=== PATIENT | male | born 1975 | race Caucasian/White ===

== ENCOUNTER 2021-03-20 10:08 | Outpatient (CLI) | payer OTHER, SELFPAY ==
--- NOTE | 2021-03-20 10:15 | USCV_ITS ---
Stu Morales Age: 45 Gender: M : 1975 Exam Date: 03/20/2021 10:37 Ordering Phys: Peña Martin MD ([email or web address]) Technologist: Gil Schuster [place] [facility] [place]: SOB BP: 122 / 106 HR: 93 Rhythm: Sinus Technical Quality: Adequate MEASUREMENTS (Male / Female) Normal Values 2D ECHO LV Diastolic Diameter PLAX 4.2 cm 4.2 - 5.9 / 3.9 - 5.3 cm LV Systolic Diameter PLAX 2.8 cm IVS Diastolic Thickness 0.9 cm 0.6 - 1.0 / 0.6 - 0.9 cm IVS Systolic Thickness 0.8 cm LVPW Diastolic Thickness 1.2 cm 0.6 - 1.0 / 0.6 - 0.9 cm LVPW Systolic Thickness 1.9 cm LVOT Diameter 2.0 cm LV Ejection Fraction 2D Teich 63.5 % LV Ejection Fraction MOD 2C 67.5 % LV Ejection Fraction 2C AL 67.6 % LA Diameter 3.1 cm LA Width 3.1 cm LA Height 3.9 cm RA Width 3.1 cm RA Height 4.3 cm Aorta at Sinotubular Diameter 2.3 cm M-MODE Aortic Annulus Diameter 3.0 cm LA Ao Ratio MM 1.0 MV E Point Septal Separation 0.6 cm DOPPLER AV Peak Velocity 123.0 cm/s LVOT Peak Velocity 104.0 cm/s AV Area Cont Eq vti 2.7 cm squared AV Area Cont Eq pk 2.7 cm squared MV Area PHT 4.2 cm squared Mitral E to A Ratio 0.9 MV E' Velocity 39.5 cm/s Mitral E to MV E' Ratio 6.7 Mitral E to LV E' Lateral Ratio 5.5 Mitral E to LV E' Septal Ratio 8.4 RV Acceleration Time 0.1 s RV Ejection Time 0.3 s RV AcT/ET 0.5 FINDINGS Left Ventricle Normal left ventricular cavity size. Normal left ventricular systolic function. No regional wall motion abnormalities. Left ventricular ejection fraction is estimated at 63 %. Grade I/IV diastolic dysfunction (abnormal relaxation filling pattern), normal to mildly elevated filling pressures. Right Ventricle The right ventricle is normal in size and function. RVSP could not be calculated due to incomplete tricuspid regurgitation velocity profile. Right Atrium The right atrium is normal in size. Left Atrium The left atrium is normal in size. Mitral Valve Structurally normal mitral valve without significant stenosis or prolapse. There is no mitral regurgitation. Aortic Valve Structurally normal aortic valve without significant sclerosis or stenosis. There is no aortic regurgitation. Tricuspid Valve Structurally normal tricuspid valve without significant stenosis or regurgitation. Pulmonic Valve Structurally normal pulmonic valve without significant stenosis. There is no pulmonic regurgitation. Pericardium Normal pericardium without effusion. Aorta Normal ascending aorta dimension. CONCLUSIONS 1-Normal left ventricular cavity size. Normal left ventricular systolic function. No regional wall motion abnormalities. Left ventricular ejection fraction is estimated at 63 %. Grade I/IV diastolic dysfunction (abnormal relaxation filling pattern), normal to mildly elevated filling pressures. 2-No significant valve abnormalities. 3-There is no pericardial effusion. 4-The right ventricle is normal in size and function. RVSP could not be calculated due to incomplete tricuspid regurgitation velocity profile. 5-Right atrial pressure is around 5 mm of mercury. 6-There are no prior echocardiogram studies to compare. Peña Martin MD (Electronically Signed) Final Date: 20 March 2021 23:31 S
== END 2021-03-20 10:09 | disposition home or self-care (01) ==
LOC: RAD 10:11
PROVIDERS: PCP Electrodiagnostic Medicine; Visit Provider Internal Medicine Cardiovascular Disease
DX: R06.02 Shortness of breath (principal); R07.9 Chest pain, unspecified
CPT/HCPCS: 93306

== ENCOUNTER 2022-03-21 07:43 | Emergency (ER) | payer OTHER, SELFPAY ==
[2022-03-21 07:49] VITALS: PULSE 96; RESP 14; TEMP 36.7; O2SAT 100; BMI 28.1
--- NOTE | 2022-03-21 07:56 | ED_ITS ---
HPI - Extremity Problem General: Chief complaint: Extremity Problem,Nontraumatic Stated complaint: Right, concrete in hand Time Seen by Provider: 03/21/22 07:50 Source: patient Mode of arrival: ambulatory Limitations: no limitations History of Present Illness: 46-year-old male presents to the ER today for possible infection of the right hand. Patient reports he noticed a sore on his right ring finger on Thursday and by Thursday night he had throbbing and swelling in that hand and up into the arm. Patient reports he just took home medications and tried to keep it clean and use peroxide. He reports after about 24 hours that had slightly improved however he still had the open wound. 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 Patient reports all of a sudden last night a new lesion appeared on his right index finger. He reports his swelling has significantly worsened overnight and he has pain up in his right shoulder. 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 He is most concerned that the redness has now extended up into the elbow and upper arm and the pain is worsening. Patient denies any fever, nausea, vomiting. Review of Systems General: Reports: 10 or more systems reviewed and unremarkable except in HPI and below PFSH ED PFSH: Medical History Hyperlipidemia LDL goal <100 Family History Brother Myocardial infarct Social History Smoking and tobacco status: current every day smoker (<1 ppd) cigarettes Packs smoked per day: 1 Physical Exam Const: COMMON NORMALS: no acute distress, average body habitus, patient oriented x3, no limitations, healthy appearing, alert and well nourished Resp: COMMON NORMALS: normal respiratory effort EFFORT & INSPECTION: Yes able to speak in complete sentences Cardio: COMMON NORMALS: regular rate and regular rhythm RATE: regular rate RHYTHM: regular rhythm Extremity: NARRATIVE EXTREMITY EXAM: Patient is noted to have swelling of the right posterior aspect of the hand with limited multimedia editor due to the swelling. Neuro: COMMON NORMALS: patient oriented x3 SENSORIUM/ORIENTATION: Yes alert Psych: COMMON NORMALS: mental status grossly normal, Normal thought process present and cooperative THOUGHT PROCESS: Normal thought process present Skin: NARRATIVE SKIN EXAM: Patient is noted to have 2 open lesions on the right ring finger and right index finger. These are open and draining. There is also significant erythema extending from around those sores up into the posterior hand and forearm. S welling is also noted of these areas. Patient is tender to palpation over the areas of swelling. Course ED course: Patient is noted to have sores and swelling on the right hand with erythema. This has been worsening over the last week. 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 Patient reports pain is continuing to worsen. Medication was offered for pain in the ER however patient declined. Vital Signs: Vital signs: Vital Signs Temperature 98.0 F 03/21/22 07:49 Pulse Rate 80 03/21/22 08:02 Respiratory Rate 14 03/21/22 07:49 Pulse Oximetry 100 03/21/22 07:49 Oxygen Delivery Me thod 03/21/22 07:49 MDM - Extremity (Nontraumatic) Medical Decision Making Patient appears of a cellulitis of the right hand. This may be due to concrete however it could also just be due to a skin infection. We will get patient started on Bactrim at this time. Recommended warm Epsom salt soaks twice daily. Also recommended patient take an anti-inflammatory for the next 5 to 7 days at max dose. He can apply ice to areas of swelling. If patient's redness and pain is not starting to improve after 48 hours, patient should return to the ER. Follow-up with PCP in 1 week. Patient verbalized understanding and was in agreement with the treatment plan. Critical Care Time Critical Care Time: Critical Care Time: No Discharge Plan Discharge Patient Disposition: Home Clinical Impression: Cellulitis of hand, right Condition: Stable Prescriptions: New Bactrim DS 800-160 mg tablet 1 tab PO BID 10 Days Qty: 20 0RF No Action aspirin [Adult Low Dose Aspirin] 81 mg tablet,delayed release (DR/EC) 81 mg PO DAILY PRN rosuvastatin 20 mg tablet 20 mg PO DAILY Qty: 90 3RF amlodipine 5 mg tablet 5 mg PO DAILY Qty: 90 3RF Discharge Orders: Discharge ED (Routine); Ordered 03/21/22 Ordered By: Janae Alvarado Referrals: Negro Menezes DO [Primary Care Provider] - Discharge Diet: Usual diet Discharge Activity: Resume usual activity Patient Instructions: Opioid Safety, Pain Management Activity Restrictions/Additional Instructions: Take Bactrim as prescribed. Take anti-inflammatory for the next 5 to 7 days. Soak in warm Epsom salts twice daily. Apply ice to areas of swelling. Follow- up after 48 hours if no improvement or if worsening. Follow-up with PCP in 1 week. 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
[2022-03-21 08:02] VITALS: PULSE 80
== END 2022-03-21 08:32 | disposition home or self-care (01) ==
PROVIDERS: Emergency Provider Physician Assistant; PCP Electrodiagnostic Medicine
DX: L03.113 Cellulitis of right upper limb (principal)
CPT/HCPCS: 99283

== ENCOUNTER → 2022-05-29 07:54 | Outpatient (BNVA) | payer OTHER, SELFPAY | PROVIDERS: PCP Electrodiagnostic Medicine; Visit Provider Podiatrist Foot & Ankle Surgery | DX: M76.72 Peroneal tendinitis, left leg (principal); S99.912S Unspecified injury of left ankle, sequela; W17.89XS Other fall from one level to another, sequela | CPT/HCPCS: 73610 ==

== ENCOUNTER 2022-10-02 18:44 | Emergency (ER) | payer OTHER, SELFPAY ==
[2022-10-02] VITALS (7 sets, daily range): BP systolic 125–158; BP diastolic 87–106; PULSE 93–117; RESP 18–27; TEMP 36.8–37.3; O2SAT 95–98; BMI 28.5
--- NOTE | 2022-10-02 19:01 | W.ED.FEVER ---
HPI - Fever General: Chief Complaint: Fever Stated Complaint: Fever, Lower back pain, Leg cramps, abd pressure Time Seen by Provider: 10/02/22 18:59 History of Present Illness: 46-year-old male patient comes in today with fever up to 103 at home starting yesterday. Patient had been working and started feeling ill and believed he was just overheating. Patient has some musculoskeletal history due to prior fracture repairs but no chronic medical problems reported. No abdominal sort injuries reported. Review of medications notes patient is on amlodipine for blood pressure and rosuvastatin for cholesterol. Associated symptoms: Reports abdominal pain (Distended) and headache(s); Deny chest pain, diarrhea, nausea or vomiting Review of Systems Const: Reports: fever(s) and body aches Card: Denies: chest pain Resp: Reports: non-productive cough GI: Reports: abdominal pain (Distended); Denies: nausea, vomiting, diarrhea or constipation : Denies: difficulty urinating Musc: Reports: back pain Skin/Breast: Denies: rash Neuro: Reports: headache(s) PFSH ED PFSH: Medical History Hyperlipidemia LDL goal <100 Family History Brother Myocardial infarct Social History Smoking and tobacco status: current every day smoker (<1 ppd) cigarettes Packs smoked per day: 1 Physical Exam Const: COMMON NORMALS: alert HENMT: COMMON NORMALS: normocephalic HEAD & SCALP: normocephalic THROAT: posterior oropharynx normal Neck/C-Spine: COMMON NORMALS: no meningeal signs Resp: COMMON NORMALS: normal respiratory effort AUSCULTATION: wheezes (Bilateral bases) Cardio: COMMON NORMALS: regular rhythm RATE: tachycardic RHYTHM: regular rhythm GI: PALPATION: Yes Firmness to palpation present (GI) (Distended) and No Tenderness to palpation present (GI) Extremity: COMMON NORMALS: normal to inspection Neuro: SENSORIUM/ORIENTATION: Yes alert MENINGEAL SIGNS: Yes no meningeal signs Skin: COMMON NORMALS: turgor normal GENERAL SKIN EXAM: turgor normal Course Vital Signs: Vital signs: Vital Signs Temperature 98.3 F 06/22/23 21:47 Pulse Rate 93 10/02/22 21:47 Respiratory Rate 19 H 10/02/22 21:47 Blood Pressure 125/93 10/02/22 21:47 Pulse Oximetry 98 10/02/22 21:47 Oxygen Delivery Me thod Room Air 10/02/22 21:00 MDM - Fever Medical Decision Making Patient comes in today for complaints of body aches, mid back pain, high fever, and occasional cough since yesterday. Patient appears unwell but not toxic. Patient is afebrile at this time. Abdomen is distended with normal active bowel sounds. Vital signs note some tachycardia in the 110s. Patient has a history of hypertension and hypercholesterolemia. Patient did admit to multiple tick bites. Patient had thought he had become overheated yesterday. Patient works in [employer]. Differential diagnosis includes but not limited to viral syndrome, tickborne illness, acute hepatitis, pneumonia, urinary tract infection, heat exhaustion. Laboratory values noted mild decrease in white blood cell count at 3.4, mild elevation in liver enzymes, normal CPK, unremarkable urinalysis. COVID and influenza test were negative. Abdominal CT showed no acute findings. Acute hepatitis panel was negative. Outstanding lab include tick panel. Due to leukopenia and elevated liver enzymes with history of tick bite I am concerned for tick fever. We will start patient on doxycycline 100 mg twice a day for 14 days. Reviewed this with patient who agreed to plan and need for follow-up or return to the ER. Lab Data 10/02/22 19:17 10/02/22 19:17 Radiology Impressions Abdomen/Pelvis CT 10/02/22 19:08 IMPRESSION: No acute findings. COMMENTS: Consistent with the [place] [employer]'s Incidental Findings Committee white paper (J Am Verna Radiol 2018): Any incidental renal lesion less than 1 cm or classified as too small to characterize, or any incidental cystic renal lesion characterized as simple-appearing, is likely benign. No follow-up imaging is recommended for these lesions per consensus recommendations based on imaging criteria. Chest X-Ray 10/02/22 19:08 IMPRESSION: No acute findings. Laboratory Results WBC 3.4 10^3/uL (4.0-10.0) L 10/02/22 19:17 RBC 5.77 10^6/uL (4.1-5.3) H 10/02/22 19:17 Hgb 17.1 g/dL (11.7-16.6) H 10/02/22 19:17 Hct 49.5 % (42.0-52.0) 10/02/22 19:17 MCV 85.8 fl (80-94) 10/02/22 19:17 MCH 29.6 pg (28.0-34.0) 10/02/22 19:17 MCHC 34.5 g/dL (30.0-36.0) 10/02/22 19:17 RDW 11.9 % (12.1-15.1) L 10/02/22 19:17 Plt Count 181 10^3/cmm (130-400) 10/02/22 19:17 MPV 9.0 fL (7.4-10.4) 10/02/22 19:17 Neut % (Auto) 76.1 % 10/02/22 19:17 Lymph % (Auto) 12.4 % 10/02/22 19:17 Ritchie % (Auto) 10.6 % 10/02/22 19:17 Eos % (Auto) 0.0 % 10/02/22 19:17 Baso % (Auto) 0.6 % 10/02/22 19:17 Neut # (Auto) 2.59 10^3/uL (1.8-7.7) 10/02/22 19:17 Lymph # (Auto) 0.4 10^3/uL (0.8-4.8) L 10/02/22 19:17 Ritchie # (Auto) 0.4 10^3/uL (0.2-0.9) 10/02/22 19:17 Eos # (Auto) 0.0 10^3/uL (0.0-0.8) 10/02/22 19:17 Baso # (Auto) 0.0 10^3/uL (0.0-0.1) 10/02/22 19:17 Nucleated RBC % (auto) 0 % 10/02/22 19:17 Nucleated RBCs # 0.0 /100WBC 10/02/22 19:17 Sodium 134 mmol/L (136-145) L 10/02/22 19:17 Potassium 3.7 mmol/L (3.5-5.1) 10/02/22 19:17 Chloride 99 mmol/L (98-107) 10/02/22 19:17 Carbon Dioxide 23 mmol/L (22-29) 10/02/22 19:17 Anion Gap 15.7 (5-19) 10/02/22 19:17 BUN 10 mg/dL (6-20) 10/02/22 19:17 Creatinine 0.9 mg/dL (0.7-1.2) 10/02/22 19:17 GFR Calculation 91.7 mL/min (90-130) 10/02/22 19:17 Glucose 115 mg/dL (65-115) 10/02/22 19:17 Calculated Osmolality 278 mOsm/kg (285-295) L 10/02/22 19:17 Calcium 8.8 mg/dL (8.5-10.5) 10/02/22 19:17 Total Bilirubin 0.6 mg/dL (0.15-1.2) 10/02/22 19:17 AST 126 U/L (0-40) H 10/02/22 19:17 ALT 134 U/L (0-41) H 10/02/22 19:17 Alkaline Phosphatase 144 U/L (40-130) H 10/02/22 19:17 Creatine Kinase 71 U/L (39-308) 10/02/22 19:17 Total Protein 7.0 g/dL (6.6-8.7) 10/02/22 19:17 Albumin 3.9 g/dL (3.5-5.2) 10/02/22 19:17 Globulin 3.1 g/dL (1.3-4.6) 10/02/22 19:17 Urine Color Yellow (Yellow) 10/02/22 20:26 Urine Appearance Clear (CLEAR) 10/02/22 20:26 Urine pH 8 (5-7) H 10/02/22 20:26 Ur Specific Marlin 1.015 (1.005-1.030) 10/02/22 20:26 Urine Protein Neg (Negative) 10/02/22 20:26 Urine Glucose (UA) Norm (Normal) 10/02/22 20:26 Urine Ketones Negative (Negative) 10/02/22 20:26 Urine Blood Neg (Negative) 10/02/22 20:26 Urine Nitrate Negative (Negative) 10/02/22 20:26 Urine Bilirubin Neg (Negative) 10/02/22 20:26 Prot Sulfosalicylic Acd Negative (Negative) 10/02/22 20:26 Urine Urobilinogen Norm mg/dL (Negative) 10/02/22 20:26 Ur Leukocyte Esterase Negative (Negative) 10/02/22 20:26 Hepatitis A IgM Ab Non-reactive (Nonreactive) 10/02/22 20:18 Hep Bs Antigen Non-reactive (Nonreactive) 10/02/22 20:18 Hep B Core IgM Ab Non-reactive (Nonreactive) 10/02/22 20:18 Hepatitis C Antibody Non-reactive (Nonreactive) 10/02/22 20:18 Influenza Type A Ag negative (Negative) 10/02/22 19:43 Influenza Type B Ag negative (Negative) 10/02/22 19:43 SARS-CoV-2 Ag (Rapid) negative (Negative) 10/02/22 19:43 Discharge Plan Discharge Patient Disposition: Home Clinical Impression: Tick fever Condition: Stable Prescriptions: New doxycycline monohydrate 100 mg capsule 100 mg PO BID 14 Days Qty: 28 0RF No Action aspirin [Adult Low Dose Aspirin] 81 mg tablet,delayed release (DR/EC) 81 mg PO DAILY PRN rosuvastatin 20 mg tablet 20 mg PO DAILY Qty: 90 3RF prednisone 10 mg tablet 10 mg PO DAILY Qty: 48 0RF meloxicam 15 mg tablet 15 mg PO DAILY Qty: 30 2RF amlodipine 5 mg tablet 5 mg PO DAILY Qty: 90 3RF Discharge Orders: Discharge ED (Routine); Ordered 10/02/22 Ordered By: James Hebert Referrals: Negro Menezes, [Primary Care Provider] - Discharge Diet: Usual diet Discharge Activity: Increase activity as tolerated Patient Instructions: Tick Bite (ED) Activity Restrictions/Additional Instructions: Drink plenty of water and fluids. Use acetaminophen and/or ibuprofen for pain and fever. Take doxycycline 100 mg twice a day for the next 14 days. Follow-up with primary care in 2 to 3 days for recheck. Return to ER for worsening symptoms such as increased shortness of breath, chest pain, inability to hold fluids down, or new concerns. 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
--- NOTE | 2022-10-02 19:08 | CTR_ITS ---
PROCEDURE INFORMATION: Exam: CT Abdomen And Pelvis Without Contrast Exam date and time: 10/02/2022 7:31 PM Age: 46 years old Clinical indication: Abdominal tenderness and bloating and fever; Additional info: Fever, abd distention, CVA tenderness TECHNIQUE: Imaging protocol: Computed tomography of the abdomen and pelvis without contrast. Radiation optimization: All CT scans at this facility use at least one of these dose optimization techniques: automated exposure control; mA and/or kV adjustment per patient size (includes targeted exams where dose is matched to clinical indication); or iterative reconstruction. REPORTING DATA: Count of CT and Cardiac NM exams in prior 12 months: This patient has received 0 known CTs and 0 known cardiac nuclear medicine studies in the 12 months prior to the current study. COMPARISON: CR (CHEST, ) 10/02/2022 7:18 PM RADIATION DOSE METRICS: Total DLP (mGy-cm): 644 FINDINGS: Liver: Normal. No mass. Gallbladder and bile ducts: Contracted gallbladder. The bile ducts are normal. Pancreas: Normal. No ductal dilation. Spleen: Calcified granulomas in the spleen. Adrenal glands: Normal. No mass. Kidneys and ureters: Right renal cyst, Hounsfield units less than 20. No follow-up imaging recommended. The kidneys are otherwise unremarkable. No calculus or hydronephrosis. Stomach and bowel: Unremarkable. No obstruction. No mucosal thickening. Appendix: The appendix is visualized and is normal. Intraperitoneal space: Unremarkable. No free air. No significant fluid collection. Vasculature: Unremarkable. No abdominal aortic aneurysm. Lymph nodes: Unremarkable. No enlarged lymph nodes. Urinary bladder: Unremarkable as visualized. Reproductive: Coarse calcifications in a normal sized prostate. Bones/joints: Mild degenerative changes of the spine. No fracture. Soft tissues: Small fat containing umbilical hernia. Small fat containing inguinal hernias. CT/CT abdomen pelvis wo con [id number] IMPRESSION: No acute findings. COMMENTS: Consistent with the [place] [employer]'s Incidental Findings Committee white paper (J Am Verna Radiol 2018): Any incidental renal lesion less than 1 cm or classified as too small to characterize, or any incidental cystic renal lesion characterized as simple-appearing, is likely benign. No follow-up imaging is recommended for these lesions per consensus recommendations based on imaging criteria.
--- NOTE | 2022-10-02 19:08 | XRR_ITS ---
PROCEDURE INFORMATION: Exam: XR Chest Exam date and time: 10/02/2022 7:18 PM Age: 46 years old Clinical indication: Fever; Additional info: Fever, body aches TECHNIQUE: Imaging protocol: Radiologic exam of the chest. Views: 1 view. COMPARISON: CR XR chest 2V* [id number] 08/05/2021 8:27 AM FINDINGS: Lungs: Unremarkable. No consolidation. Pleural spaces: Unremarkable. No pleural effusion. No pneumothorax. Heart/Mediastinum: Unremarkable. No cardiomegaly. Bones/joints: Unremarkable. XR/XR chest 1V portable [id number] IMPRESSION: No acute findings.
[2022-10-02 19:31] LABS: Basophils % 0.6 %; Hematocrit 49.5 % (42.0-52.0); Hemoglobin 17.1 g/dL (11.7-16.6); Lymphocytes # 0.4 10^3/uL (0.8-4.8); Lymphocytes % 12.4 %; Mean Corpuscular HGB Conc 34.5 g/dL (30.0-36.0); Mean Corpuscular Hemoglobin 29.6 pg (28.0-34.0); Mean Corpuscular Volume 85.8 fl (80-94); Monocytes # 0.4 10^3/uL (0.2-0.9); Monocytes % 10.6 %; Neutrophils # 2.59 10^3/uL (1.8-7.7); Neutrophils % 76.1 %; Nucleated Red Blood Cells % 0 %; Platelet Count 181 10^3/cmm (130-400); Red Blood Count 5.77 10^6/uL (4.1-5.3); Red Cell Distribution Width 11.9 % (12.1-15.1); White Blood Count 3.4 10^3/uL (4.0-10.0)
[2022-10-02 19:52] LABS: Alanine Aminotransferase 134 U/L (0-41); Albumin Level 3.9 g/dL (3.5-5.2); Alkaline Phosphatase 144 U/L (40-130); Anion Gap 15.7 (5-19); Aspartate Amino Transferase 126 U/L (0-40); Blood Urea Nitrogen 10 mg/dL (6-20); Calcium 8.8 mg/dL (8.5-10.5); Carbon Dioxide 23 mmol/L (22-29); Chloride 99 mmol/L (98-107); Creatine Phosphokinase 71 U/L (39-308); Globulin 3.1 g/dL (1.3-4.6); Glomerular Filtration Rate 91.7 mL/min (90-130); Glucose 115 mg/dL (65-115); Osmolality Calculated 278 mOsm/kg (285-295); Potassium 3.7 mmol/L (3.5-5.1); Sodium 134 mmol/L (136-145); Total Bilirubin 0.6 mg/dL (0.15-1.2)
[2022-10-02] MEDS: sodium chloride 0.9% 1,000 ML 999 ML IV (19:52)
[2022-10-02] MEDS: ketorolac 30 mg/mL INJ 15 MG IVP (19:52)
[2022-10-02] MEDS: morphine 4 mg/mL SDV 1 mL IVP (19:54)
[2022-10-02 20:22] LABS: Influenza A by IFA negative (Negative); Influenza B by IFA negative (Negative); SARS Covid-2 Antigen negative (Negative)
[2022-10-02 20:34] LABS: Add Urine Microscopic? NO; Charge for UA Resulting for Rev
[2022-10-02 20:47] LABS: Bilirubin Urine Neg (Negative); Blood Urine Neg (Negative); Glucose Urine UA Norm (Normal); Ketones Urine Negative (Negative); Leukocyte Esterase Urine Negative (Negative); Nitrate Urine Negative (Negative); Protein Urine Neg (Negative); Specific Gravity, Urine 1.015 (1.005-1.030); Sulfosalicylic Acid Urine Negative (Negative); Urine Appearance Clear (CLEAR); Urine Color Yellow (Yellow); Urobilinogen Urine Norm (Negative); pH Urine 8 (5-7)
[2022-10-02 21:19] LABS: Hepatitis A Antibody IgM Non-Reactive (Nonreactive); Hepatitis B Core IgM Non-Reactive (Nonreactive); Hepatitis B Surface Antigen Non-Reactive (Nonreactive); Hepatitis C Virus Antibody Non-Reactive (Nonreactive)
[2022-10-02] MEDS: doxycycline 100 mg Tablet PO (21:40)
[2022-10-06 12:30] LABS: Lyme AB Screen <0.90 index
[2022-10-08 16:59] LABS: RMSF IGG NOT DETECTED; RMSF IGM NOT DETECTED
[2022-10-09 17:50] LABS: E. Chaffeensis AB IGG <1:64; E. Chaffeensis AB IGM <1:20
== END 2022-10-02 21:48 | disposition home or self-care (01) ==
PROVIDERS: Emergency Provider Nurse Practitioner Family; PCP Electrodiagnostic Medicine
DX: A93.8 Other specified arthropod-borne viral fevers (principal); Z79.82 Long term (current) use of aspirin; Z20.822 Contact with and (suspected) exposure to COVID-19; E78.5 Hyperlipidemia, unspecified; F17.210 Nicotine dependence, cigarettes, uncomplicated
CPT/HCPCS: 36415; 71045; 74176; 80053; 80074; 81003; 82550; 85025; 86618; 86666; 86757; 87040; 87426; 87804; 96361; 96374; 96375; 99285; J1885; J2270; J7030

== ENCOUNTER 2022-10-04 20:49 | Emergency (ER) | payer OTHER, SELFPAY ==
[2022-10-04 20:55] VITALS: BP 152/100; PULSE 115; RESP 16; TEMP 37.5; O2SAT 97
--- NOTE | 2022-10-04 21:38 | W.ED.GENADLT ---
Documented by User: Goyo Stafford MD 10/16/22 17:06 HPI - General Adult General: Chief complaint: General Medical Stated complaint: Back and ABD Pain\Chest Pain Time Seen by Provider: 10/04/22 21:38 History of Present Illness: Mr. Morales is a 46-year-old gentleman with history of hyperlipidemia hypertension, tobaccoism presented to the emergency department for reevaluation of worsening symptoms. He initially presented on 10/02 with 1 day of symptoms. Note that times generalized illness and hot feeling with fever. He notes some aches. He was diagnosed with tach fever and initiated on doxycycline. Despite this his symptoms have worsened. He notes bilateral head pain, shortness of breath which is exertional, abdominal and flank fullness and pain as well as generalized malaise. Intensity symptoms is moderate to severe. Course has worsened. No other specific changes in health, exacerbating, or alleviating factors identified. Onset (ago): day(s) Severity: severe Relieving factors: none Exacerbating factors: none Review of Systems General: Reports: 10 or more systems reviewed and unremarkable except in HPI and below PFSH ED PFSH: Medical History Hyperlipidemia LDL goal <100 Family History Brother Myocardial infarct Social History Smoking and tobacco status: current every day smoker (<1 ppd) cigarettes Packs smoked per day: 1 Physical Exam Const: COMMON NORMALS: alert GENERAL APPEARANCE: cooperative, well developed and ill appearing HENMT: COMMON NORMALS: normocephalic and atraumatic HEAD & SCALP: normocephalic and atraumatic Eye: COMMON NORMALS: conjunctivae normal CONJUNCTIVA: Yes conjunctivae normal SCLERA: sclerae normal Neck/C-Spine: COMMON NORMALS: supple GENERAL: Yes trachea midline Resp: COMMON NORMALS: clear to auscultation bilaterally EFFORT & INSPECTION: Yes able to speak in complete sentences AUSCULTATION: clear to auscultation bilaterally Cardio: COMMON NORMALS: regular rhythm RATE: tachycardic RHYTHM: regular rhythm GI: COMMON NORMALS: Soft to palpation PALPATION: Yes Soft to palpation and No Tenderness to palpation present (GI) Extremity: GENERAL: Yes normal exam except as noted and No edema Neuro: COMMON NORMALS: moves all extremities SENSORIUM/ORIENTATION: Yes alert and No Orientation impaired Psych: COMMON NORMALS: mental status grossly normal and Normal thought process present THOUGHT PROCESS: Normal thought process present Course Vital Signs: Vital signs: Vital Signs Temperature 99.5 F 10/04/22 20:55 Pulse Rate 100 10/05/22 01:29 Respiratory Rate 16 10/05/22 01:29 Blood Pressure 150/118 10/05/22 01:29 Pulse Oximetry 95 10/05/22 01:29 Oxygen Delivery Me thod Room Air 10/05/22 01:29 [facility] - General Adult Medical Decision Making 46-year-old gentleman presenting with generalized illness. He is somewhat ill in appearance and tachycardic. Laboratory studies and symptom treatment ordered. Handed off to Dr. Oliveira pending ablation of ED evaluation and reassessment patient condition. 46 year old male checked out to me by the previous physician at shift change. This man is continued to have fevers despite three to four doses of doxycycline for a presumed diagnosis of tick fever. His heart rate is down. His temperature is 99.5. Oxygen saturations are normal on room air. His chest X-ray was negative. His D dimer was slightly elevated. CTA is ordered, and shows mild bilateral fluid as well as higher adenopathy. Viral swab is not positive. Urinalysis is negative. His CRP is 45. He still has stable elevation in his liver enzymes. Tick panel has not resulted. He has received a fluid bolus, symptomatic cares otherwise. Will allow home to continue doxycycline. Return for worsening symptoms despite treatment. Medical Records I reviewed the patient's medical records. Lab Data I reviewed the patient's lab results. 10/04/22 22:05 10/04/22 22:05 Radiology Impressions Chest X-Ray 10/04/22 21:42 IMPRESSION: No acute cardiopulmonary process. Chest CTA 10/04/22 22:59 IMPRESSION: 1. Mild bilateral pleural fluid collections. 2. Hwzx-ed-suzusixi noncalcified mediastinal and hilar adenopathy which could represent noncalcified granulomatous disease versus sarcoidosis versus other lesion. 3. No pulmonary embolus or aortic dissection. Laboratory Results WBC 5.6 10^3/uL (4.0-10.0) 10/04/22 22:05 RBC 5.79 10^6/uL (4.1-5.3) H 10/04/22 22:05 Hgb 17.2 g/dL (11.7-16.6) H 10/04/22 22:05 Hct 50.3 % (42.0-52.0) 10/04/22 22:05 MCV 86.9 fl (80-94) 10/04/22 22:05 MCH 29.7 pg (28.0-34.0) 10/04/22 22:05 MCHC 34.2 g/dL (30.0-36.0) 10/04/22 22:05 RDW 12.1 % (12.1-15.1) 10/04/22 22:05 Plt Count 158 10^3/cmm (130-400) 10/04/22 22:05 MPV 9.7 fL (7.4-10.4) 10/04/22 22:05 Neut % (Auto) 67.5 % 10/04/22 22:05 Lymph % (Auto) 19.9 % 10/04/22 22:05 [place] % (Auto) 11.5 % 10/04/22 22:05 Eos % (Auto) 0.4 % 10/04/22 22:05 Baso % (Auto) 0.5 % 10/04/22 22:05 Neut # (Auto) 3.80 10^3/uL (1.8-7.7) 10/04/22 22:05 Lymph # (Auto) 1.1 10^3/uL (0.8-4.8) 10/04/22 22:05 [place] # (Auto) 0.7 10^3/uL (0.2-0.9) 10/04/22 22:05 Eos # (Auto) 0.0 10^3/uL (0.0-0.8) 10/04/22 22:05 Baso # (Auto) 0.0 10^3/uL (0.0-0.1) 10/04/22 22:05 Nucleated RBC % (auto) 0 % 10/04/22 22:05 Nucleated RBCs # 0.0 /100WBC 10/04/22 22:05 Tear Drop Cells 1+ 10/04/22 22:05 PT 12.50 SECONDS (12.1-14.9) 06/24/23 22:05 INR 0.90 (0.8-1.2) 10/04/22 22:05 D-Dimer 0.95 ug/mIFEU (0-0.59) H 10/04/22 22:05 Specimen Type Arterial 10/04/22 22:20 Sample Site Brachial, left 10/04/22 22:20 ABG pH 7.47 (7.35-7.45) H 10/04/22 22:20 ABG pCO2 31.8 mmHg (35-45) L 10/04/22 22:20 ABG pO2 64.1 mmHg (80.0-100.0) L 10/04/22 22:20 ABG HCO3 23.0 mmol/L (22-26) 10/04/22 22:20 ABG Base Excess 0.3 mmol/L (-2.0-2.0) 10/04/22 22:20 Suresh Test N/a 10/04/22 22:20 Hematocrit 51.5 % (42-52) 10/04/22 22:20 O2 Delivery Device None 10/04/22 22:20 FiO2 21.0 % 10/04/22 22:20 Wafer Fabrication Technician ID Alewe 10/04/22 22:20 Sodium 132 mmol/L (136-145) L 10/04/22 22:05 Potassium 3.9 mmol/L (3.5-5.1) 10/04/22 22:05 Chloride 96 mmol/L (98-107) L 10/04/22 22:05 Carbon Dioxide 26 mmol/L (22-29) 10/04/22 22:05 Anion Gap 13.9 (5-19) 10/04/22 22:05 BUN 6 mg/dL (6-20) 10/04/22 22:05 Creatinine 0.8 mg/dL (0.7-1.2) 10/04/22 22:05 GFR Calculation 105.0 mL/min (90-130) 10/04/22 22:05 Glucose 107 mg/dL (65-115) 10/04/22 22:05 Calculated Osmolality 272 mOsm/kg (285-295) L 10/04/22 22:05 Lactic Acid 1.3 mmol/L (0.5-2.2) 10/04/22 22:05 Calcium 8.9 mg/dL (8.5-10.5) 10/04/22 22:05 Total Bilirubin 0.9 mg/dL (0.15-1.2) 10/04/22 22:05 AST 102 U/L (0-40) H 10/04/22 22:05 ALT 166 U/L (0-41) H 10/04/22 22:05 Alkaline Phosphatase 243 U/L (40-130) H 10/04/22 22:05 C-Reactive Protein 45.0 mg/L (0.0-4.9) H 10/04/22 22:05 Total Protein 7.2 g/dL (6.6-8.7) 10/04/22 22:05 Albumin 4.0 g/dL (3.5-5.2) 10/04/22 22:05 Globulin 3.2 g/dL (1.3-4.6) 10/04/22 22:05 Lipase 20 U/L (13-60) 10/04/22 22:05 Procalcitonin 0.27 ng/mL (0-0.5) 10/04/22 22:05 Urine Color Yellow (Yellow) 10/04/22 22:52 Urine Appearance Clear (CLEAR) 10/04/22 22:52 Urine pH 9 (5-7) H 10/04/22 22:52 Ur Specific Malin 1.010 (1.005-1.030) 10/04/22 22:52 Urine Protein Neg (Negative) 10/04/22 22:52 Urine Glucose (UA) Norm (Normal) 10/04/22 22:52 Urine Ketones Negative (Negative) 10/04/22 22:52 Urine Blood Neg (Negative) 10/04/22 22:52 Urine Nitrate Negative (Negative) 10/04/22 22:52 Urine Bilirubin Neg (Negative) 10/04/22 22:52 Prot Sulfosalicylic Acd Negative (Negative) 10/04/22 22:52 Urine Urobilinogen Norm mg/dL (Negative) 10/04/22 22:52 Ur Leukocyte Esterase Negative (Negative) 10/04/22 22:52 Nasal Influ A H1 2008 PCR Not detected (NOT DETECT) 10/04/22 22:04 Adenovirus (PCR) Not detected (NOT DETECT) 10/04/22 22:04 C. pneumoniae DNA (PCR) Not detected (NOT DETECT) 10/04/22 22:04 Coronavirus 229E (PCR) Not detected (NOT DETECT) 10/04/22 22:04 Human Metapneumovir PCR Not detected (NOT DETECT) 10/04/22 22:04 Influenza A (H1) PCR Not detected (NOT DETECT) 10/04/22 22:04 Influenza A (H3) PCR Not detected (NOT DETECT) 10/04/22 22:04 Influenza Type A (PCR) Not detected (NOT DETECT) 10/04/22 22:04 Influenza Type B (PCR) Not detected (NOT DETECT) 10/04/22 22:04 M. pneumoniae (PCR) Not detected (NOT DETECT) 10/04/22 22:04 Parainfluenza 1 (PCR) Not detected (NOT DETECT) 10/04/22 22:04 Parainfluenza 2 (PCR) Not detected (NOT DETECT) 10/04/22 22:04 Parainfluenza 3 (PCR) Not detected (NOT DETECT) 10/04/22 22:04 Parainfluenza 4 (PCR) Not detected (NOT DETECT) 10/04/22 22:04 RSV Type A (PCR) Not detected (NOT DETECT) 10/04/22 22:04 RSV Type B (PCR) Not detected (NOT DETECT) 10/04/22 22:04 Entero/Rhino (PCR) Not detected (NOT DETECT) 10/04/22 22:04 SARS-CoV-2 (PCR) Not detected (NOT DETECT) 10/04/22 22:04 Discharge Plan Discharge Patient Disposition: Home Clinical Impression: Tick fever Condition: Stable Prescriptions: New amoxicillin-pot clavulanate 875-125 mg tablet 1 tab PO BID Qty: 20 0RF Percocet 7.5-325 mg tablet 1 tab PO Q6H PRN (Reason: pain) Qty: 10 0RF ketorolac 10 mg tablet 10 mg PO TID PRN (Reason: pain) Qty: 10 0RF No Action aspirin [Adult Low Dose Aspirin] 81 mg tablet,delayed release (DR/EC) 81 mg PO DAILY PRN rosuvastatin 20 mg tablet 20 mg PO DAILY Qty: 90 3RF prednisone 10 mg tablet 10 mg PO DAILY Qty: 48 0RF meloxicam 15 mg tablet 15 mg PO DAILY Qty: 30 2RF amlodipine 5 mg tablet 5 mg PO DAILY Qty: 90 3RF Discharge Orders: Discharge ED (Routine); Ordered 10/05/22 Ordered By: Romero Oliveira Referrals: Negro Menezes DO [Primary Care Provider] - 1-3 days Patient Instructions: Fever in Adults (ED), Opioid Safety, Pain Management Activity Restrictions/Additional Instructions: Medications as directed. Alternate the pain medication and ketorolac for headache, body aches, etc. Push oral hydration. Follow-up with your doctor this week. Ideally, chest x-ray could be repeated to ensure there is no buildup of fluid. Return for any worsening or concerning symptoms. Coding Level of Care Code ED Rag Cutting Machine Tender for Chg Fwd Documented by User: Romero lOiveira DO 10/07/22 20:03 HPI - General Adult General: Chief complaint: General Medical Stated complaint: Back and ABD Pain\Chest Pain Time Seen by Provider: 10/04/22 21:38 [facility] ED PFSH: Medical History Hyperlipidemia LDL goal <100 Family History Brother Myocardial infarct Social History Smoking and tobacco status: current every day smoker (<1 ppd) cigarettes Packs smoked per day: 1 Course Vital Signs: Vital signs: Vital Signs Temperature 99.5 F 10/04/22 20:55 Pulse Rate 100 10/05/22 01:29 Respiratory Rate 16 10/05/22 01:29 Blood Pressure 150/118 10/05/22 01:29 Pulse Oximetry 95 10/05/22 01:29 Oxygen Delivery Me thod Room Air 10/05/22 01:29 MDM - General Adult Medical Decision Making 46 year old male checked out to me by the previous physician at shift change. This man is continued to have fevers despite three to four doses of doxycycline for a presumed diagnosis of tick fever. His heart rate is down. His temperature is 99.5. Oxygen saturations are normal on room air. His chest X-ray was negative. His D dimer was slightly elevated. CTA is ordered, and shows mild bilateral fluid as well as higher adenopathy. Viral swab is not positive. Urinalysis is negative. His CRP is 45. He still has stable elevation in his liver enzymes. Tick panel has not resulted. He has received a fluid bolus, symptomatic cares otherwise. Will allow home to continue doxycycline. Return for worsening symptoms despite treatment. Lab Data 10/04/22 22:05 10/04/22 22:05 Radiology Impressions Chest X-Ray 10/04/22 21:42 IMPRESSION: No acute cardiopulmonary process. Chest CTA 10/04/22 22:59 IMPRESSION: 1. Mild bilateral pleural fluid collections. 2. Gzfx-vw-ypkakjuc noncalcified mediastinal and hilar adenopathy which could represent noncalcified granulomatous disease versus sarcoidosis versus other lesion. 3. No pulmonary embolus or aortic dissection. Laboratory Results WBC 5.6 10^3/uL (4.0-10.0) 10/04/22 22:05 RBC 5.79 10^6/uL (4.1-5.3) H 10/04/22 22:05 Hgb 17.2 g/dL (11.7-16.6) H 10/04/22 22:05 Hct 50.3 % (42.0-52.0) 10/04/22 22:05 MCV 86.9 fl (80-94) 10/04/22 22:05 MCH 29.7 pg (28.0-34.0) 10/04/22 22:05 MCHC 34.2 g/dL (30.0-36.0) 10/04/22 22:05 RDW 12.1 % (12.1-15.1) 10/04/22 22:05 Plt Count 158 10^3/cmm (130-400) 10/04/22 22:05 MPV 9.7 fL (7.4-10.4) 10/04/22 22:05 Neut % (Auto) 67.5 % 10/04/22 22:05 Lymph % (Auto) 19.9 % 10/04/22 22:05 [place] % (Auto) 11.5 % 10/04/22 22:05 Eos % (Auto) 0.4 % 10/04/22 22:05 Baso % (Auto) 0.5 % 10/04/22 22:05 Neut # (Auto) 3.80 10^3/uL (1.8-7.7) 10/04/22 22:05 Lymph # (Auto) 1.1 10^3/uL (0.8-4.8) 10/04/22 22:05 [place] # (Auto) 0.7 10^3/uL (0.2-0.9) 10/04/22 22:05 Eos # (Auto) 0.0 10^3/uL (0.0-0.8) 10/04/22 22:05 Baso # (Auto) 0.0 10^3/uL (0.0-0.1) 10/04/22 22:05 Nucleated RBC % (auto) 0 % 10/04/22 22:05 Nucleated RBCs # 0.0 /100WBC 10/04/22 22:05 Tear Drop Cells 1+ 10/04/22 22:05 PT 12.50 SECONDS (12.1-14.9) 10/04/22 22:05 INR 0.90 (0.8-1.2) 10/04/22 22:05 D-Dimer 0.95 ug/mIFEU (0-0.59) H 10/04/22 22:05 Specimen Type Arterial 10/04/22 22:20 Sample Site Brachial, left 10/04/22 22:20 ABG pH 7.47 (7.35-7.45) H 10/04/22 22:20 ABG pCO2 31.8 mmHg (35-45) L 10/04/22 22:20 ABG pO2 64.1 mmHg (80.0-100.0) L 10/04/22 22:20 ABG HCO3 23.0 mmol/L (22-26) 10/04/22 22:20 ABG Base Excess 0.3 mmol/L (-2.0-2.0) 10/04/22 22:20 Suresh Test N/a 10/04/22 22:20 Hematocrit 51.5 % (42-52) 10/04/22 22:20 O2 Delivery Device None 10/04/22 22:20 FiO2 21.0 % 10/04/22 22:20 Wafer Fabrication Technician ID Alewe 10/04/22 22:20 Sodium 132 mmol/L (136-145) L 10/04/22 22:05 Potassium 3.9 mmol/L (3.5-5.1) 10/04/22 22:05 Chloride 96 mmol/L (98-107) L 10/04/22 22:05 Carbon Dioxide 26 mmol/L (22-29) 10/04/22 22:05 Anion Gap 13.9 (5-19) 10/04/22 22:05 BUN 6 mg/dL (6-20) 10/04/22 22:05 Creatinine 0.8 mg/dL (0.7-1.2) 10/04/22 22:05 GFR Calculation 105.0 mL/min (90-130) 10/04/22 22:05 Glucose 107 mg/dL (65-115) 10/04/22 22:05 Calculated Osmolality 272 mOsm/kg (285-295) L 10/04/22 22:05 Lactic Acid 1.3 mmol/L (0.5-2.2) 10/04/22 22:05 Calcium 8.9 mg/dL (8.5-10.5) 10/04/22 22:05 Total Bilirubin 0.9 mg/dL (0.15-1.2) 10/04/22 22:05 AST 102 U/L (0-40) H 10/04/22 22:05 ALT 166 U/L (0-41) H 10/04/22 22:05 Alkaline Phosphatase 243 U/L (40-130) H 10/04/22 22:05 C-Reactive Protein 45.0 mg/L (0.0-4.9) H 10/04/22 22:05 Total Protein 7.2 g/dL (6.6-8.7) 10/04/22 22:05 Albumin 4.0 g/dL (3.5-5.2) 10/04/22 22:05 Globulin 3.2 g/dL (1.3-4.6) 10/04/22 22:05 Lipase 20 U/L (13-60) 10/04/22 22:05 Procalcitonin 0.27 ng/mL (0-0.5) 10/04/22 22:05 Urine Color Yellow (Yellow) 10/04/22 22:52 Urine Appearance Clear (CLEAR) 10/04/22 22:52 Urine pH 9 (5-7) H 10/04/22 22:52 Ur Specific Malin 1.010 (1.005-1.030) 10/04/22 22:52 Urine Protein Neg (Negative) 10/04/22 22:52 Urine Glucose (UA) Norm (Normal) 10/04/22 22:52 Urine Ketones Negative (Negative) 10/04/22 22:52 Urine Blood Neg (Negative) 10/04/22 22:52 Urine Nitrate Negative (Negative) 10/04/22 22:52 Urine Bilirubin Neg (Negative) 10/04/22 22:52 Prot Sulfosalicylic Acd Negative (Negative) 10/04/22 22:52 Urine Urobilinogen Norm mg/dL (Negative) 10/04/22 22:52 Ur Leukocyte Esterase Negative (Negative) 10/04/22 22:52 Nasal Influ A H1 2009 PCR Not detected (NOT DETECT) 10/04/22 22:04 Adenovirus (PCR) Not detected (NOT DETECT) 10/04/22 22:04 C. pneumoniae DNA (PCR) Not detected (NOT DETECT) 10/04/22 22:04 Coronavirus 229E (PCR) Not detected (NOT DETECT) 10/04/22 22:04 Human Metapneumovir PCR Not detected (NOT DETECT) 10/04/22 22:04 Influenza A (H1) PCR Not detected (NOT DETECT) 10/04/22 22:04 Influenza A (H3) PCR Not detected (NOT DETECT) 10/04/22 22:04 Influenza Type A (PCR) Not detected (NOT DETECT) 10/04/22 22:04 Influenza Type B (PCR) Not detected (NOT DETECT) 10/04/22 22:04 M. pneumoniae (PCR) Not detected (NOT DETECT) 10/04/22 22:04 Parainfluenza 1 (PCR) Not detected (NOT DETECT) 10/04/22 22:04 Parainfluenza 2 (PCR) Not detected (NOT DETECT) 10/04/22 22:04 Parainfluenza 3 (PCR) Not detected (NOT DETECT) 10/04/22 22:04 Parainfluenza 4 (PCR) Not detected (NOT DETECT) 10/04/22 22:04 RSV Type A (PCR) Not detected (NOT DETECT) 10/04/22 22:04 RSV Type B (PCR) Not detected (NOT DETECT) 10/04/22 22:04 Entero/Rhino (PCR) Not detected (NOT DETECT) 10/04/22 22:04 SARS-CoV-2 (PCR) Not detected (NOT DETECT) 10/04/22 22:04 Discharge Plan Discharge Patient Disposition: Home Clinical Impression: Tick fever Condition: Stable Prescriptions: New amoxicillin-pot clavulanate 875-125 mg tablet 1 tab PO BID Qty: 20 0RF Percocet 7.5-325 mg tablet 1 tab PO Q6H PRN (Reason: pain) Qty: 10 0RF ketorolac 10 mg tablet 10 mg PO TID PRN (Reason: pain) Qty: 10 0RF No Action aspirin [Adult Low Dose Aspirin] 81 mg tablet,delayed release (DR/EC) 81 mg PO DAILY PRN rosuvastatin 20 mg tablet 20 mg PO DAILY Qty: 90 3RF prednisone 10 mg tablet 10 mg PO DAILY Qty: 48 0RF meloxicam 15 mg tablet 15 mg PO DAILY Qty: 30 2RF amlodipine 5 mg tablet 5 mg PO DAILY Qty: 90 3RF Discharge Orders: Discharge ED (Routine); Ordered 10/05/22 Ordered By: Romero Oliveira Referrals: Negro Menezes DO [Primary Care Provider] - 1-3 days Patient Instructions: Fever in Adults (ED), Opioid Safety, Pain Management Activity Restrictions/Additional Instructions: Medications as directed. Alternate the pain medication and ketorolac for headache, body aches, etc. Push oral hydration. Follow-up with your doctor this week. Ideally, chest x-ray could be repeated to ensure there is no buildup of fluid. Return for any worsening or concerning symptoms. Coding Level of Care Code ED Rag Cutting Machine Tender for Ernst Allen
--- NOTE | 2022-10-04 21:42 | XRR_ITS ---
PROCEDURE INFORMATION: Exam: XR Chest Exam date and time: 10/04/2022 9:55 PM Age: 46 years old Clinical indication: Shortness of breath; Additional info: SOB TECHNIQUE: Imaging protocol: Radiologic exam of the chest. Views: 1 view. COMPARISON: CR (CHEST, ) 10/02/2022 7:18 PM FINDINGS: Lungs: Lungs are clear bilaterally. Pleural spaces: No pleural effusion. No pneumothorax. Heart/Mediastinum: The cardiac silhouette and mediastinal contours are unremarkable. Bones/joints: Unremarkable for age. XR/XR chest 1V portable [id number] IMPRESSION: No acute cardiopulmonary process.
[2022-10-04 22:00] VITALS: BP 137/107; PULSE 107; RESP 18; O2SAT 95
--- NOTE | 2022-10-04 22:10 | ECG_ITS ---
[facility] Test Date: 2022-10-04 Pat Name: Stu Morales Department: Room: Gender: Male [employer] Operator: : 1975 Requested By: Goyo Stafford Order Number: [id number] Crow MD: Damion Freeman M.D. Measurements Intervals Uriah Rate: 96 P: 49 LA: 151 QRS: 6 QRSD: 89 T: 41 QT: 329 QTc: 417 Interpretive Statements SINUS RHYTHM No previous ECG available for comparison Electronically Signed On 10-05-2022 8:20:57 CDT by Damion Freeman M.D. [id number]
[2022-10-04] MEDS: lactated ringers 1,000 ML 999 ML IV (22:11)
[2022-10-04] MEDS: morphine 4 mg/mL SDV 1 mL IVP (22:13)
[2022-10-04 22:28] LABS: Basophils % 0.5 %; Eosinophils % 0.4 %; Hematocrit 50.3 % (42.0-52.0); Hemoglobin 17.2 g/dL (11.7-16.6); Lymphocytes # 1.1 10^3/uL (0.8-4.8); Lymphocytes % 19.9 %; Mean Corpuscular HGB Conc 34.2 g/dL (30.0-36.0); Mean Corpuscular Hemoglobin 29.7 pg (28.0-34.0); Mean Corpuscular Volume 86.9 fl (80-94); Mean Platelet Volume 9.7 fL (7.4-10.4); Monocytes # 0.7 10^3/uL (0.2-0.9); Monocytes % 11.5 %; Neutrophils % 67.5 %; Nucleated Red Blood Cells % 0 %; Platelet Count 158 10^3/cmm (130-400); Red Blood Count 5.79 10^6/uL (4.1-5.3); Red Cell Distribution Width 12.1 % (12.1-15.1); White Blood Count 5.6 10^3/uL (4.0-10.0)
[2022-10-04 22:28] LABS: ABG PCO2 31.8 mmHg (35-45); ABG PH Result 7.47 (7.35-7.45); Arterial Blood Gas Hematocrit 51.5 % (42-52); Base Excess ABG 0.3 mmol/L (-2.0-2.0); Blood Gas Sample Site Brachial, left; Blood Gas Sample Type Arterial; PO2 ABG 64.1 mmHg (80.0-100.0)
[2022-10-04 22:46] LABS: Alanine Aminotransferase 166 U/L (0-41); Alkaline Phosphatase 243 U/L (40-130); Anion Gap 13.9 (5-19); Aspartate Amino Transferase 102 U/L (0-40); Blood Urea Nitrogen 6 mg/dL (6-20); Calcium 8.9 mg/dL (8.5-10.5); Carbon Dioxide 26 mmol/L (22-29); Chloride 96 mmol/L (98-107); Globulin 3.2 g/dL (1.3-4.6); Glucose 107 mg/dL (65-115); Lactic Sepsis W/Reflex 1.3 mmol/L (0.5-2.2); Lipase 20 U/L (13-60); Osmolality Calculated 272 mOsm/kg (285-295); Potassium 3.9 mmol/L (3.5-5.1); Sodium 132 mmol/L (136-145); Total Bilirubin 0.9 mg/dL (0.15-1.2); Total Protein 7.2 g/dL (6.6-8.7)
[2022-10-04 22:52] LABS: Procalcitonin 0.27 ng/mL (0-0.5)
[2022-10-04 22:54] LABS: D Dimer 0.95 ug/mIFEU (0-0.59)
--- NOTE | 2022-10-04 22:59 | CTR_ITS ---
PROCEDURE INFORMATION: Exam: CTA Chest With Contrast Exam date and time: 10/04/2022 11:08 PM Age: 46 years old Clinical indication: Abnormal findings; Abnormal diagnostic tests; Elevated d-dimer; Shortness of breath; Patient HX: SOB with tachycardia. Dimer of 0.95. ; Additional info: SOB, tachycardia TECHNIQUE: Imaging protocol: Computed tomographic angiography of the chest with contrast. Exam focused on the arteries. 3D rendering (Not supervised by radiologist): MIP and/or 3D reconstructed images were created by the technologist. Radiation optimization: All CT scans at this facility use at least one of these dose optimization techniques: automated exposure control; mA and/or kV adjustment per patient size (includes targeted exams where dose is matched to clinical indication); or iterative reconstruction. Contrast material: OMNI 350; Contrast volume: 100 ml; Contrast route: INTRAVENOUS (IV); REPORTING DATA: Count of CT and Cardiac NM exams in prior 12 months: This patient has received [address] and 0 known cardiac nuclear medicine studies in the 12 months prior to the current study. COMPARISON: CR (CHEST, ) 10/04/2022 9:55 PM RADIATION DOSE METRICS: Total DLP (mGy-cm): 753.23 FINDINGS: Pulmonary arteries: Normal. No pulmonary emboli. Aorta: Unremarkable. No aortic aneurysm. No aortic dissection. Lungs: See Lymph nodes finding. Pleural spaces: Mild bilateral pleural fluid collections. Heart: Unremarkable. No cardiomegaly. No pericardial effusion. Lymph nodes: Calcified bilateral hilar nodes and/or mediastinal nodes and/or lung granulomas consistent with old granulomatous disease. Ftyb-xl-xhvlctuh noncalcified mediastinal and hilar adenopathy which could represent noncalcified granulomatous disease versus sarcoidosis versus other lesion. Spleen: Calcified splenic granulomas. Bones/joints: Unremarkable. No acute fracture. Soft tissues: Unremarkable. CT/CT angio chest PE protcl [id number] IMPRESSION: 1. Mild bilateral pleural fluid collections. 2. Jtbh-ad-rlsnpnsq noncalcified mediastinal and hilar adenopathy which could represent noncalcified granulomatous disease versus sarcoidosis versus other lesion. 3. No pulmonary embolus or aortic dissection.
[2022-10-04 23:04] LABS: Add Urine Microscopic? NO; Charge for UA Resulting for Rev
[2022-10-04 23:05] LABS: Slide Review Slide Review Perform
[2022-10-04 23:06] LABS: Add RBC Morph Yes; RBC Morph Comp No; Tear Drop Cells 1+
[2022-10-04 23:24] LABS: Bilirubin Urine Neg (Negative); Blood Urine Neg (Negative); Glucose Urine UA Norm (Normal); Ketones Urine Negative (Negative); Leukocyte Esterase Urine Negative (Negative); Nitrate Urine Negative (Negative); Protein Urine Neg (Negative); Sulfosalicylic Acid Urine Negative (Negative); Urine Appearance Clear (CLEAR); Urine Color Yellow (Yellow); Urobilinogen Urine Norm (Negative); pH Urine 9 (5-7)
[2022-10-04] MEDS: iohexol 350 mg/mL 500 mL Btl (per mL) IV (23:24)
[2022-10-05 00:12] VITALS: BP 143/108; PULSE 104; O2SAT 96
[2022-10-05 00:12] LABS: Adenovirus Not Detected (NOT DETECT); Chlamydia Pneumoniae Not Detected (NOT DETECT); Coronavirus 229E,HKU1,NL63,OC4 Not Detected (NOT DETECT); Human Metapneumovirus Not Detected (NOT DETECT); Human Rhinovirus/Enterovirus Not Detected (NOT DETECT); Influenza A Not Detected (NOT DETECT); Influenza A H1 Not Detected (NOT DETECT); Influenza A H1-2009 Not Detected (NOT DETECT); Influenza A H3 Not Detected (NOT DETECT); Influenza B Not Detected (NOT DETECT); Mycoplasma Pneumoniae Not Detected (NOT DETECT); Parainfluenza Virus Type 1 Not Detected (NOT DETECT); Parainfluenza Virus Type 2 Not Detected (NOT DETECT); Parainfluenza Virus Type 3 Not Detected (NOT DETECT); Parainfluenza Virus Type 4 Not Detected (NOT DETECT); Respiratory Syncytial Virus A Not Detected (NOT DETECT); Respiratory Syncytial Virus B Not Detected (NOT DETECT); SARS-COV-2 Not Detected (NOT DETECT)
[2022-10-05] MEDS: doxycycline 100 mg Tablet PO (01:21)
[2022-10-05] MEDS: ondansetron 2 mg/ML SDV 2 mL 4 MG IVP (01:22)
[2022-10-05] MEDS: morphine 4 mg/mL SDV 1 mL IVP (01:25)
[2022-10-05] MEDS: ketorolac 30 mg/mL INJ IVP (01:28)
[2022-10-05 01:29] VITALS: BP 150/118; PULSE 100; RESP 16; O2SAT 95
[2022-10-05] MEDS: dexamethasone 10 mg/mL INJ 6 MG IVP (01:29)
== END 2022-10-05 01:38 | disposition home or self-care (01) ==
PROVIDERS: Emergency Provider Emergency Medicine; PCP Electrodiagnostic Medicine
DX: A93.8 Other specified arthropod-borne viral fevers (principal); Z79.82 Long term (current) use of aspirin; Z20.822 Contact with and (suspected) exposure to COVID-19; E78.5 Hyperlipidemia, unspecified; F17.210 Nicotine dependence, cigarettes, uncomplicated; I10 Essential (primary) hypertension
CPT/HCPCS: 36415; 36600; 71045; 71275; 80053; 81003; 82803; 83605; 83690; 84145; 85025; 85378; 85610; 86140; 87040; 87486; 87581; 87633; 93005; 96361; 96374; 96375; 96376; 99285; J1100; J1885; J2270; J2405; J7120; Q9967

== ENCOUNTER → 2023-09-28 15:39 | Outpatient (BNVA) | payer OTHER, SELFPAY | PROVIDERS: PCP Electrodiagnostic Medicine; Visit Provider Internal Medicine Cardiovascular Disease | DX: S29.9XXA Unspecified injury of thorax, initial encounter (principal); X58.XXXA Exposure to other specified factors, initial encounter | CPT/HCPCS: 93005 ==

== ENCOUNTER 2023-10-12 07:07 | Outpatient (CLI) | payer OTHER, SELFPAY ==
--- NOTE | 2023-10-12 07:15 | USCV_ITS ---
Stu Morales Age: 47 Gender: M : 1975 Exam Date: 10/12/2023 07:20 Ordering Phys: Peña Martin MD ([email or web address]) Technologist: [place] [facility] [place] [Add Site Location] Indication: SOB BP: 164 / 118 HR: 115 Rhythm: Sinus Technical Quality: Adequate MEASUREMENTS (Male / Female) Normal Values 2D ECHO LV Diastolic Diameter PLAX 4.5 cm 4.2 - 5.9 / 3.9 - 5.3 cm IVS Diastolic Thickness 1.1 cm 0.6 - 1.0 / 0.6 - 0.9 cm IVS Systolic Thickness 1.8 cm LVPW Diastolic Thickness 1.3 cm 0.6 - 1.0 / 0.6 - 0.9 cm LVPW Systolic Thickness 1.4 cm LVOT Diameter 2.0 cm LV Ejection Fraction 2D Teich 70.3 % LV Ejection Fraction MOD 2C 72.4 % LV Ejection Fraction 2C AL 72.5 % LA Diameter 2.8 cm RA Systolic Volume 4C AL 24.2 ml RA Systolic Volume 4C MOD 22.7 ml Aorta at Sinotubular Diameter 2.7 cm DOPPLER AV Peak Velocity 112.0 cm/s LVOT Peak Velocity 90.0 cm/s AV Area Cont Eq vti 3.2 cm squared AV Area Cont Eq pk 2.6 cm squared MV Peak Velocity 88.0 cm/s MV Area PHT 3.9 cm squared Mitral E to A Ratio 1.1 TR Peak Velocity 149.0 cm/s TR Peak Gradient 8.9 mmHg TV Peak E Velocity 75.0 cm/s Right Atrial Pressure 3.0 mmHg Pulmonary Artery Systolic Pressu 11.9 mmHg PV Peak Velocity 101.0 cm/s FINDINGS Left Ventricle Normal left ventricular size and systolic function, EF 72%. No regional wall motion abnormalities. Mild left ventricular hypertrophy. Right Ventricle The right ventricle is normal in size and function. Right Atrium The right atrium is normal in size. Left Atrium The left atrium is normal in size. Mitral Valve No gross abnormalities noted Aortic Valve Thickened aortic valve. Tricuspid Valve No gross abnormalities noted Pulmonic Valve Pulmonic valve not well visualized. Pericardium Normal pericardium without effusion. Aorta Normal ascending aorta dimension. IVC Inferior vena cava not visualized. CONCLUSIONS Normal left ventricular size and systolic function, EF 72%. No regional wall motion abnormalities. Mild left ventricular hypertrophy. Thickened aortic valve. There is no pericardial effusion. There are no intracardiac masses. No similar previous studies are available for comparison Dr Walter Baker MD FACC (Electronically Signed) Final Date: 20 October 2023 19:50 S
== END 2023-10-12 07:08 | disposition home or self-care (01) ==
LOC: RAD 07:07
PROVIDERS: PCP Electrodiagnostic Medicine; Visit Provider Internal Medicine Cardiovascular Disease
DX: I35.0 Nonrheumatic aortic (valve) stenosis (principal); R06.02 Shortness of breath
CPT/HCPCS: 93306

== ENCOUNTER 2023-10-19 12:23 | Outpatient (CLI) | payer OTHER, SELFPAY ==
[2023-10-19 12:29] VITALS: BMI 28.8
--- NOTE | 2023-10-19 12:29 | ECG_ITS ---
Test Date: 2023-10-19 Pat Name: Stu Morales Department: Room: Gender: Male Patient Care Provider: : 1975 Requested By: Mi Solano Order Number: [id number] Tristin MD: Interpretive Statements Lung unchanged pre/post procedure; Intraprocedure shortess of breath; Symptoms resoled by discharge [email or web address]
[2023-10-19 13:08] VITALS: BP 151/106; PULSE 102
== END 2023-10-19 12:24 | disposition home or self-care (01) ==
PROVIDERS: PCP Electrodiagnostic Medicine; Visit Provider Nurse Practitioner Family
DX: R07.9 Chest pain, unspecified (principal); R06.02 Shortness of breath
CPT/HCPCS: 93017

== ENCOUNTER 2024-11-19 10:02 | Observation (INO) | payer OTHER, SELFPAY ==
--- OUTSIDE RECORDS SUMMARY | 2023-10-21 03:40 | XMS_ITS ---
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 :1975 A ge:47 Y S ex:Male Date:10/21/2023 Address:[address] [place], [place] [id number] Billing Information: * Procedure Codes: * Electronic signature of Wyatt Carrasquillo MD on 11/19/2024 at 10:10 AM CDT Sign off status: Pending * Provider: Ponce Carrasquillo M.D. Date: 0 10/21/2023 Generated for Inna dangelo/Frandy/Stevenitting on: 0 11/19/2024 10:10 AM CDT
--- OUTSIDE RECORDS SUMMARY | 2023-12-25 05:10 | XMS_ITS ---
Author Organization [facility] Address [address] [place] [address] Care Team Providers Care Aerosol Supervisor Name Role Phone None, None Primary Care Provider Js Pascual Unavailable [phone] REASON FOR VISIT RT MIDDLE/RING FINGER Encounters Encounter Location Date Provider Diagnosis [facility] [address] [place] [address] 12/25/2023 Js Carrasquillo Plan Of Treatment No Information Progress Notes * Stu EMERYDOB:1975 (48 yo M)Acc No.[id number]:12/25/2023 Patient: Stu Norman Provider: Ponce Carrasquillo M.D. :1975 A ge:47 Y S ex:Male Date:12/25/2023 Address:[address] [place], [place] [id number] Subjective: * Chief Complaints: * R T MIDDLE/RING FINGER Billing Information: * Procedure Codes: * Electronic signature of Wyatt Carrasquillo MD on 11/19/2024 at 10:10 AM CDT Sign off status: Pending * Provider: Ponce Carrasquillo M.D. Date: 12/25/2023 Generated for Inna ng/Faemg/eTransmitting on: 0 11/19/2024 10:10 AM CDT
[2024-11-19] VITALS (19 sets, daily range): BP systolic 138–179; BP diastolic 90–128; PULSE 76–109; RESP 13–23; O2SAT 93–100
--- NOTE | 2024-11-19 10:05 | ECG_ITS ---
[facility] Test Date: 2024-11-19 Pat Name: Stu Morales Department: Room: Gender: Male Caddie Supervisor: : 1975 Requested By: Rao Almanzar Order Number: [id number] Crow MD: RJ HOWARD Measurements Intervals [place] Rate: 90 P: 43 PA: 152 QRS: 10 QRSD: 88 T: 30 QT: 345 QTc: 424 Interpretive Statements SINUS RHYTHM MODERATE VOLTAGE CRITERIA FOR LVH, CONSIDER NORMAL VARIANT [MEETS CRITERIA IN ONE OF: R(aVL), S(V1), R(V5), R(V5/V6)+S(V1)] Compared to ECG 09/28/2023 15:47:39 Sinus tachycardia no longer present Electronically Signed On 11-22-2024 18:49:47 CDT by RJ HOWARD [id number]
--- OUTSIDE RECORDS SUMMARY | 2024-11-19 10:10 | XMS_ITS | Patient Health Record ---
Author Organization [facility] Address [address] [place] [address] Care Team Providers Care Floor Sanding Machine Operator Name Role Phone None, None Primary Care Provider Js Pascual Unavailable [phone] Allergies Allergen (clinical drug ingredient) Drug/Non Drug Allergy documented on EMR Reaction Allergy Type Onset Date Status acetaminophen / oxycodone Percocet agitation Drug Allergy Active oxycodone Oxycodone agitation Drug Allergy Active Reason For Referral No Information Social History Tobacco Use: Social History Observation Description Date Details (start date - stop date) Former Smoker NA - NA Social History Tobacco Use: Social Info Question Answer Notes Tobacco Control (Standard) Tobacco use: Former smoker How long has it been since you last smoked? 6-12 months Plan Of Treatment Pending Test Test Name Order Date Basic Metabolic Panel (BMP) 46693 2023 CBC Reflex Man Diff 29319, 40441 024 Electrocardiogram 12 Lead Tracing-79794 09/15/2023 Chest AP/Lateral 09/15/2023 Insurance Providers Payer Name Payer Address Payer Phone Subscriber Number Group Number Insured Name Patient Relationship to Insured Coverage Start Date Coverage End Date [facility] [address] [place] [phone] [id number] Stu Morales Self - patient is the insured Medical (General) History Surgical History Surgery Date(Month/Year) carpal tunnel release 2021 Right middle & ring finger release and e xploration of flexor tendons 10/21/2023
--- OUTSIDE RECORDS SUMMARY | 2024-11-19 10:10 | XMS_ITS | Clinical Summary ---
Author Organization [facility] Address [address] [place] [address] Phone Care Team Providers Care Industrial Maintenance Millwright Name Role Phone Negro Menezes Primary Care Provider Allergies No known active allergies Medications No known medications Social History Tobacco Use Types Packs/Day Years Used Date Smoking Tobacco: Every Day Sex and Gender Information Value Date Recorded Sex Assigned at Not on file Legal Sex Male 3:09 PM COMMUNICATIONS CLERK Gender Identity Not on file Sexual Orientation Not on file Last Filed Vital Signs Vital Sign Reading Time Taken Comments Blood Pressure 125/96 04/09/2021 1:16 PM COMMUNICATIONS CLERK Pulse 57 04/09/2021 1:16 PM COMMUNICATIONS CLERK Temperature - - Respiratory Rate 16 04/09/2021 1:16 PM COMMUNICATIONS CLERK Oxygen Saturation 99% 04/09/2021 1:16 PM COMMUNICATIONS CLERK Inhaled Oxygen Concentration - - Weight 83.9 kg (185 lb) 04/09/2021 10:45 AM COMMUNICATIONS CLERK Height 172.7 cm (5' 8 ) 04/09/2021 10:45 AM COMMUNICATIONS CLERK Body Mass Index 28.13 04/09/2021 10:45 AM COMMUNICATIONS CLERK Plan of Treatment Health Maintenance Due Date Last Done Comments DTAP/TDAP/TD VACCINES (1 - Tdap) 1996 HEPATITIS B VACCINES (1 of 3 - 19+ 3-dose series) 1996 COLORECTAL SCREENING 2022 Colorectal Cancer Screening 2022 FIT-DNA Q 3 years 2022 FIT/FOBT Q 1 year 2022 Flex Sig/CT Colonography Q 5 years 2022 INFLUENZA VACCINE (#1) 2024 HPV VACCINES Aged Out No longer eligi ble based on patient's age to complete this topic Insurance POS II Care Teams Industrial Maintenance Millwright Relationship Specialty Start Date End Date Negro Menezes DO PCP - General Family Practice 04/01/21
--- NOTE | 2024-11-19 10:12 | XRR_ITS ---
PROCEDURE INFORMATION: Exam: XR Chest Exam date and time: 11/19/2024 10:16 AM Age: 48 years old Clinical indication: Pain; Chest pressure; Additional info: Cp TECHNIQUE: Imaging protocol: Radiologic exam of the chest. Views: 1 view. COMPARISON: CT angio chest PE protcl [id number] 10/04/2022 11:08 PM FINDINGS: Lungs: Unremarkable. No consolidation. Pleural spaces: Unremarkable. No pleural effusion. No pneumothorax. Heart/Mediastinum: Unremarkable. No cardiomegaly. Bones/joints: Unremarkable. XR/XR chest 1V portable [id number] IMPRESSION: No acute cardiopulmonary abnormality.
[2024-11-19 10:22] LABS: Hematocrit 53.8 % (37-53); Hemoglobin 18.10 g/dL (11.27-16.99); Mean Corpuscular HGB Conc 33.6 g/dL (30-55); Mean Corpuscular Hemoglobin 29.6 pg (27-33); Mean Corpuscular Volume 88.1 fl (82-101); Nucleated Red Blood Cells % 0 %; Platelet Count 271 10^3/cmm (157-399); Red Blood Count 6.11 10^6/uL (3.85-5.65); White Blood Count 6.94 10^3/uL (3.29-11.43)
[2024-11-19 10:41] LABS: Troponin(5th) Baseline 11 ng/L (0-15)
[2024-11-19 10:54] LABS: Alanine Aminotransferase 81 U/L (0-41); Albumin Level 4.4 g/dL (3.5-5.2); Alkaline Phosphatase 159 U/L (40-130); Aspartate Amino Transferase 47 U/L (0-40); Blood Urea Nitrogen 9 mg/dL (6-20); Calcium 9.7 mg/dL (8.5-10.5); Carbon Dioxide 25 mmol/L (22-29); Chloride 99 mmol/L (98-107); Creatinine Clr Calc Pharmacy 123.2333; Globulin 3.0 g/dL (1.3-4.6); Glucose 107 mg/dL (65-115); NT Pro B Type Natriuretic Pept < 36 pg/mL (0-125); Osmolality Calculated 281 mOsm/kg (285-295); Sodium 136 mmol/L (136-145); Total Protein 7.4 g/dL (6.6-8.7)
[2024-11-19 10:55] LABS: Anion Gap 16.6 (5-19); Potassium 4.6 mmol/L (3.5-5.1)
--- NOTE | 2024-11-19 11:44 | W.ED.CHESTPA ---
HPI - Chest Pain General: Chief Complaint: Chest Pain Stated Complaint: CP, SOB Time Seen by Provider: 11/19/24 10:03 History of Present Illness: HPI: Patient without regular medical care presenting the emergency department for worsening shortness of breath chest pain over the last 3 days. 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 Non-smoker. No previous heart attacks. Patient has a brother suddenly of a heart attack in his 30s. Father has had multiple heart attacks. Patient describes extreme shortness of breath and chest pressure to the point that it causes him to cry when he walks short distances. The pain abates completely with rest and worsens again with exertion. This is over the last 3 days. Patient states that when he sitting in the room right now he has 1 out of 10 chest pain is only mild. REVIEW OF SYSTEMS: 10 systems reviewed and otherwise unremarkable except for those noted in HPI. PHYSCIAL EXAM: Triage vital signs reviewed Gen: A&O NAD HEENT: NCAT, EOMI, not icteric. External ears normal. No rhinorrhea. Moist mucous membranes. Neck: Supple, full range of motion, no observable masses, No meningeal sign. Lungs: No Respiratory distress. Clear to auscultation CV: RRR, no edema. No murmurs rubs gallops. Abdomen: Soft, nondistended, No rebound tenderness. MSK: No joint swelling, no redness. Skin: No rashes, petechiae, lesions. Normal color per patient. Neuro: Normal Gait, Grossly intact. Psych: Appropriate for situation. PROCEDURES: EKG: Rate: Normal Rhythm: Sinus [place]: Normal variant Intervals: Normal Ischemia: No STEMI criteria Related Data Home Medications ?Medication ?Instructions ?Recorded ?Confirmed aspirin 81 mg tablet,delayed 81 mg PO DAILY 11/19/24 11/19/24 release Previous Rx's ?Medication ?Instructions ?Recorded amlodipine 5 mg tablet 5 mg PO DAILY #90 tabs 05/24/24 Allergies Allergy/AdvReac Type Severity Reaction Status Date / Time No Known Allergies Allergy Verified 09/28/23 15:51 [facility] ED PFSH: Medical History (Updated 11/19/24 @ 13:09 by Rao Almanzar MD) Hyperlipidemia LDL goal <100 Family History Brother Myocardial infarct Social History (Updated 09/28/23 @ 15:56 by Debra Gipson LPN) Smoking and tobacco/nicotine status: former use of tobacco/nicotine Substance/Drug Use: former Course Vital Signs: Vital signs: Vital Signs Pulse Rate 109 H 11/19/24 12:30 Respiratory Rate 23 H 11/19/24 12:30 Blood Pressure 163/103 11/19/24 12:30 Pulse Oximetry 99 11/19/24 12:30 Oxygen Delivery Me thod Room Air 11/19/24 12:30 MDM - Chest Pain Medical Decision Making MEDICAL DECISION MAKING: Differential diagnoses considered but not limited to: Angina, pneumonia, viral syndrome, PE, aortic catastrophe, stress reaction, others. Vitals nonactionable. Given history, examination, and pretest risk factors, feel patient is not low risk for acute coronary ischemia. Obtain delta troponin rule out. Will consult cardiology. Cardiology recommends heparinization and Catheterization. Dr. Brito presents and will see the patient. Dr. Brito evaluates patient in the emergency department will take patient to the Orthopedic Specialist. DISPO: Orthopedic Specialist Rao Almanzar MD Staff physician, [facility] Emergency Department [phone] Lab Data 11/19/24 10:15 11/19/24 10:15 Radiology Impressions Chest X-Ray 11/19/24 10:12 IMPRESSION: No acute cardiopulmonary abnormality. Laboratory Results WBC 6.94 10^3/uL (3.29-11.43) 11/19/24 10:15 RBC 6.11 10^6/uL (3.85-5.65) H 11/19/24 10:15 Hgb 18.10 g/dL (11.27-16.99) H 11/19/24 10:15 Hct 53.8 % (37-53) H 11/19/24 10:15 MCV 88.1 fl (82-101) 11/19/24 10:15 MCH 29.6 pg (27-33) 11/19/24 10:15 MCHC 33.6 g/dL (30-55) 11/19/24 10:15 RDW 12.4 % (12.1-15.1) 11/19/24 10:15 Plt Count 271 10^3/cmm (157-399) 11/19/24 10:15 MPV 9.3 fL (7.4-10.4) 11/19/24 10:15 Neut % (Auto) 59.3 % 11/19/24 10:15 Lymph % (Auto) 26.8 % 11/19/24 10:15 [place] % (Auto) 9.8 % 11/19/24 10:15 Eos % (Auto) 3.0 % 11/19/24 10:15 Baso % (Auto) 0.7 % 11/19/24 10:15 Neut # (Auto) 4.11 10^3/uL (1.8-7.7) 11/19/24 10:15 Lymph # (Auto) 1.9 10^3/uL (0.8-4.8) 11/19/24 10:15 [place] # (Auto) 0.7 10^3/uL (0.2-0.9) 11/19/24 10:15 Eos # (Auto) 0.2 10^3/uL (0.0-0.8) 11/19/24 10:15 Baso # (Auto) 0.1 10^3/uL (0.0-0.1) 11/19/24 10:15 Nucleated RBC % (auto) 0 % 11/19/24 10:15 Nucleated RBCs # 0.0 /100WBC 11/19/24 10:15 D-Dimer <= 0.27 ug/mLFEU (0-0.59) 11/19/24 10:15 Sodium 136 mmol/L (136-145) 11/19/24 10:15 Potassium 4.6 mmol/L (3.5-5.1) 11/19/24 10:15 Chloride 99 mmol/L (98-107) 11/19/24 10:15 Carbon Dioxide 25 mmol/L (22-29) 11/19/24 10:15 Anion Gap 16.6 (5-19) 11/19/24 10:15 BUN 9 mg/dL (6-20) 11/19/24 10:15 Creatinine 0.8 mg/dL (0.7-1.2) 11/19/24 10:15 GFR Calculation 104.1 mL/min (90-130) 11/19/24 10:15 Glucose 107 mg/dL (65-115) 11/19/24 10:15 Calculated Osmolality 281 mOsm/kg (285-295) L 11/19/24 10:15 Calcium 9.7 mg/dL (8.5-10.5) 11/19/24 10:15 Total Bilirubin 0.8 mg/dL (0.15-1.2) 11/19/24 10:15 AST 47 U/L (0-40) H 11/19/24 10:15 ALT 81 U/L (0-41) H 11/19/24 10:15 Alkaline Phosphatase 159 U/L (40-130) H 11/19/24 10:15 Troponin T Baseline 11 ng/L (0-15) 11/19/24 10:15 Troponin T 120 Minute 7.28 ng/L (0-15) 11/19/24 11:57 Delta Troponin T -3.72 ABS# (0-10) L 11/19/24 11:57 NT-Pro-B Natriuret Pep < 36 pg/mL (0-125) 11/19/24 10:15 Total Protein 7.4 g/dL (6.6-8.7) 11/19/24 10:15 Albumin 4.4 g/dL (3.5-5.2) 11/19/24 10:15 Globulin 3.0 g/dL (1.3-4.6) 11/19/24 10:15 All radiology interpretation(s) finalized by discharge Discharge Plan Discharge Patient Disposition: Placed in Observation Clinical Impression: Angina pectoris syndrome Discharge Diet: Usual diet Discharge Activity: Resume usual activity Coding Level of Care Code ED Conveyor Feeder Offbearer for Ernst Allen
--- NOTE | 2024-11-19 11:59 | PC.NURSE ---
heparin administration delayed D/T PT discussing ith possibly leaving AMA. Physician notified
--- NOTE | 2024-11-19 12:12 | ECG_ITS ---
[facility] Test Date: 2024-11-19 Pat Name: Stu Morales Department: Room: Gender: Male Second Language Tutor: : 1975 Requested By: Rao Almanzar Order Number: [id number] Tristin MD: RJ HOWARD Measurements Intervals [place] Rate: 81 P: 41 IN: 147 QRS: 8 QRSD: 85 T: 30 QT: 350 QTc: 407 Interpretive Statements SINUS RHYTHM MODERATE VOLTAGE CRITERIA FOR LVH, CONSIDER NORMAL VARIANT [MEETS CRITERIA IN ONE OF: R(aVL), S(V1), R(V5), R(V5/V6)+S(V1)] Compared to ECG 11/19/2024 10:05:01 No significant changes Electronically Signed On 11-22-2024 20:07:20 CDT by RJ HOWARD [email or web address]
[2024-11-19 12:24] LABS: Troponin 5 2HR 7.28 ng/L (0-15); Troponin 5 2HR Delta -3.72 ABS# (0-10)
[2024-11-19] MEDS: heparin drip 25,000 UNIT/500 ML PREMIX 24.13 UNIT IV (12:33)
[2024-11-19] MEDS: heparin 5,000 unit/mL INJ 1 mL IVP (12:34)
--- NOTE | 2024-11-19 12:44 | PC.NURSE ---
PT aggreeable to start IV heparin and go to farm labor contractor. PT placed in gown, on monitor, 2 IVs
--- NOTE | 2024-11-19 13:11 | XACV_ITS ---
Exam Room: 2 Ht: 173 cm Wt: 86 kg BSA: 2.05 m2 Gender: Male : 1975 Any Known Allergies: No known allergies Exam Priority: Routine Procedure(s): Procedure Description: Diagnostic procedure Procedure Description: Left Heart Catheterization Procedure Description: Left ventriculography Procedure Description: Coronary Angiography EARLINEVeronica PETER; Diagnostic Cath Status: Elective Diagnostic Findings * No disease noted in the Left Main, Left Anterior Descending, Right, or Circumflex coronary arteries. * Coronary angiography shows right dominance. Conclusions 1. No disease noted in the Left Main, Left Anterior Descending, Right, or Circumflex coronary arteries. 2. High left ventricular end-diastolic pressure 37 mmHg. Left ventricular angiography was not performed due to high left ventricle end-diastolic pressure.. Recommendations * Continue current medical management and risk factor modification. * Consider good blood pressure control, add HA or ARB with diuretics to reduce left ventricular end-diastolic pressure. Will add isosorbide mononitrate as well.. Diagnostic RX Recommendation: medical therapy and/or counseling LV EDP: 37 mmHg Pressures Phase:Rest AO : 143 / 101 ( 117 ) @ 3:36:00 PM LV : 147 / 38 / 37 @ 3:34:00 PM Clinical Evaluation EBL: 5mL-10mL Procedural Details Procedure Consent Obtained. Admit Source: Emergency department. Pre-Procedure Time Out. Identified patient by full name and date of as verbalized by the patient/guarantor. Does the consent match the physician's order: Yes. Accurate & Complete Informed Consent: Yes. Inpatient/Outpatient History & Physical on Chart: Yes. If H&P is completed, is and addenduem needed: No; If yes, is the addendum complete: N/A. Visualize and Verify Site with Patient/Guarantor: N/A. Relevant Radiology Images available: N/A. The risks, benefits, and alternatives of sedation and/or procedure were discussed by physician. The patient agrees to continue. Procedure started. [facility] Clinical Fraility Score: 3: Managing Well. Dental Ceramist Indications: New Onset Angina. Chest Pain Symptom Assessment: Typical Angina Symptoms. Correct patient, site and procedure confirmed by cath team. Current diagnosis: Unstable angina. PERRLA. Strong, equal hand truck crane operator helper bilaterally. Lungs clear x 5 lobes. IV Site on Arrival: 20 gauge in the right anticubital. IV Fluids: 0.9% NaCl at 75ml/hr. 0 mL infused prior to computer lab para professional. Pre Procedural Pulses: bilateral radial was 2+. Pre Procedural Pulses: bilateral dorsalis pedis was 2+. Pre Procedural Pulses: bilateral posterior tibial was 2+. Oxygen started at 2liters/min via nasal canula. right radial was prepped with chloroprep then draped in the usual sterile fashion. right groin was prepped with chloroprep then draped in the usual sterile fashion. Baseline sample Acquired. HR: 88 BPM. Physician notified. Physician arrived. Physician scrubbed in. Immediate Pre-Procedure Time Out. Correct Patient: Yes; Correct Procedure: Yes; Correct Site: Yes; Correct Patient Position: Yes; Correct Supplies: Yes; Dried Flammable Prep: Yes; Blood Products Available: No;. Lidocaine 1% infiltrated to the right radial. Arterial access obtained. A 5 liberian TIG catheter in over wire. Wire out. Multiple views taken of right coronary artery. Catheter redirected to the LCA. Multiple views taken of left coronary artery. Catheter removed over the exchange wire. A 5 liberian Angled Pig catheter in over wire. Wire out. EDP Sample taken: LV 147/38,37; HR: 92 BPM; SpO2: 100%. Pullback taken: LV Off; AO Off; Mean: , Peak to Peak: , SEP: ; HR: 92 BPM; SpO2: 99%. Catheter removed over the exchange wire. Physician scrubbed out. Post Procedure: Pulses reassessed and unchanged. PERRLA. Strong, equal hand truck crane operator helper bilaterally. No VTE prophylaxis required. Medication's Wasted: Lidocaine 1% = 18 mL. Medication's Wasted: Nitro = 49.7 mg. Medication's Wasted: Heparin = 1000 units. Medication's Wasted: Other = Fentanyl 100mcg, Versed 2 mg. Total IV fluids: 35 mL. Post-op diagnosis: Normal Coronaries, High LVEDP. Complications: None. Estimated blood loss: 5mL-10mL. Responsiveness - Normal response to verbal stimuli; alert and oriented, PERRLA. Airway - Unaffected, no intervention required; spontaneous ventilation. Circulation: W/N/L, pulses unchanged. Nausea/Vomiting: No. Procedure completed. Patient transferred by wheelchair to 1st floor. Vital chart was stopped. Access Site Site: Right Radial artery Sheath Size: 6 Fr Hemostasis Success: Unsuccessful Procedure Medications Start: 2:12 PM Stop: 2:12 PM Medication: Versed Amount: 1 mg Route: I.V. Start: 2:12 PM Stop: 2:12 PM Medication: Fentanyl Amount: 50 mcg Route: I.V. Start: 2:15 PM Stop: 2:15 PM Medication: Versed Amount: 1 mg Route: I.V. Start: 2:15 PM Stop: 2:15 PM Medication: Fentanyl Amount: 25 mcg Route: I.V. Start: 2:23 PM Stop: 2:23 PM Medication: Nitrogylcerin Amount: 300 mcg Route: I.A. Start: 2:23 PM Stop: 2:23 PM Medication: Fentanyl Amount: 25 mcg Route: I.V. I, the attending physician, have reviewed and verified all procedure medications. Yes, all medications given per verbal order History/Risk Factors Hypertension: Yes Dyslipidemia: Yes Peripheral Arterial Disease (PAD): No Myocardial Infarction (RI): No Obesity: No Renal Disease: No Prior Interventions PCI: No CABG: No Valve Surgery: No Report Signatures Finalized by Peña Martin MD on 11/19/2024 02:58 PM
--- NOTE | 2024-11-19 13:13 | P.HP_ITS ---
Providers/Chief Complaint 2 Admitting Physician: Peña Martin MD Primary Care Provider: Negro Menezes DO Chief Complaint: CP, SOB History of Present Illness Stu Morales is a 48 year old male past medical history significant for strong family history of premature coronary artery disease brother at the age of 36 with heart attack, father with heart problem in early age, he himself carries history of tobacco abuse uncontrolled hypertension presented with worsening of shortness of breath chest pain over the last 2 days now to the extent that few steps brings the chest pain back, his is a nurse who convinced him to come to the ER. He does have negative treadmill stress test last year however his symptoms has worsened for the last 1 month. 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 The symptoms are new and has been worsening. On arrival he was hypertensive, he was treated for blood pressure in the ER currently he is chest pain-free. Twelve-lead EKG showed sinus rhythm normal axis no significant ST changes. Cardiac markers first set is normal. Since patient continues to have off-and-on chest pain going on for the last couple of days given his history of high risk for coronary artery disease and premature family history of heart problem with brother at the age of 36 as well as father had heart problem at the early age I cannot rule out soft and unstable plaque therefore we will proceed with left heart cath and PCI if indicated. Medications/Allergies Home Medications ?Medication ?Instructions ?Recorded ?Confirmed ?Last Taken ?Type amlodipine 5 mg tablet 5 mg PO DAILY #90 tabs 05/2411/19/24 11/19/24 Rx aspirin 81 mg tablet,delayed 81 mg PO DAILY 11/19/24 0 11/19/24 11/19/24 History release Allergies Allergy/AdvReac Type Severity Reaction Status Date / Time No Known Allergies Allergy Verified 09/28/23 15:51 PFSH Acute 2 PFSH: Medical History (Updated 11/19/24 @ 13:17 by Peña Martin MD) Hyperlipidemia LDL goal <100 Family History Brother Myocardial infarct Social History (Updated 09/28/23 @ 15:56 by Debra Gipson, MARKETING INTELLIGENCE MANAGER) Smoking and tobacco/nicotine status: former use of tobacco/nicotine Substance/Drug Use: former Vitals/I&O/Wt Last Vital Signs Pulse 109 H 11/19/24 12:30 Resp 23 H 11/19/24 12:30 BP 163/103 11/19/24 12:30 Pulse Ox 99 11/19/24 12:30 O2 Del Method Room Air 11/19/24 12:30 Weight last 48 hrs Weight 190 lb Physical Exam 2 Const: OTHER: GENERAL: Patient is alert, awake and oriented x3. HEART: Regular S1 and S2. No murmur, rub or gallop. LUNGS: Clear to auscultate bilaterally. CENTRAL NERVOUS SYSTEM: Grossly nonfocal. EXTREMITIES: Lower extremities with out edema bilaterally. Data 11/19/24 10:15 11/19/24 10:15 A&P Assessment and plan 1. Essential hypertension: 2. Unstable angina: Plan: Given patient history as above diagnosis of unstable angina is most likely therefore we will proceed with left heart cath/PCI if indicated. Patient has been explained all risk-benefit and alternative for the procedure his by bedside with nurse and understand it completely. They would like to proceed with it. PDMP PDMP Reviewed: Not Reviewed Attestations 2 Medical Necessity Statement*: Patient is under observation, I am not expecting his stay to cross more than 2 midnights. Coding Level of Care Code Acute Code for [facility] Fwd Diagnoses Essential hypertension I10 Unstable angina I20.0
--- NOTE | 2024-11-19 13:18 | W.PM.OPSUD ---
Surgery/Procedure H&P Update DATE OF PROCEDURE: November 19, 2024 DATE H&P PERFORMED: 11/19/24 H&P UPDATE INFORMATION: I have reviewed H&P completed within last 30 days, I have examined patient prior to procedure and No changes to prior documentation PREOP DIAGNOSIS: Unstable angina PRIMARY INDICATION FOR PROCEDURE: Chest pain along with shortness of breath which is increased in frequency and duration now at rest is suggestive of unstable angina therefore we will proceed with left heart cath/PCI PATIENT REASSESSED PRIOR TO SEDATION, WITH NO CHANGE NOTED: Yes PHYSICAL EXAM: alert, oriented x 3, clear to auscultation bilaterally, regular rate & rhythm and operative site marked AIRWAY EVAL/ANESTHESIA PLAN: ASA II, Risks, benefits & alternatives of sedation and/or procedure discussed and Patient agrees to continue as planned ADDITIONAL INFORMATION: Patient has been explained all risk-benefit and alternative for the procedure. Patient understand 2% risk of stroke major bleed. Patient understand 5% risk of urgent or emergent vascular and cardiothoracic surgery, contrast-induced nephropathy leading to temporary or permanent dialysis, hematoma aneurysm pseudoaneurysm and infection. Patient and his by bedside clearly understood and would like to proceed with it.
--- NOTE | 2024-11-19 14:11 | PC.NURSE ---
PT taken to supervisor cytogenetic laboratory @1400
[2024-11-19] MEDS: FUROsemide 10 mg/mL SDV 4mL 40 MG IVP (15:38)
--- NOTE | 2024-11-19 15:57 | PC.NURSE ---
patient arrived on the floor at 1522. TR band with 15ml of air on right radial. No hematoma noted. Patient is alert and oriented, joking with staff. Blood pressure set to take every 15min. at bedside.
--- NOTE | 2024-11-19 17:45 | PM.DCS ---
Discharge Providers Date of Admission: 11/19/24 15:24 Date of Discharge: November 19, 2024 Attending Provider at Admission: Peña Martin MD Attending Provider at Discharge: Peña Martin MD Primary Care Provider: Negro Menezes DO Diagnoses at Discharge Discharge Diagnosis 1. Essential hypertension: 2. Unstable angina: Reason for Visit Reason for Visit: CP, SOB Brief History: 48-year-old male past medical history significant for uncontrolled hypertension premature family history of coronary disease presented with shortness of breath chest pain suggestive of unstable angina. He was taken to the [facility] he was noted to have normal coronaries however left ventricular end-diastolic pressure was moderately high 37 mmHg, he was thought to have diastolic dysfunction with high LVEDP causing his shortness of breath symptoms and chest pain. He was diuresed. His medications are optimized. Patient tolerated procedure well of left heart catheterization, he is recovered wristband is off. He is being discharged. Physical Exam Const: OTHER: GENERAL: Patient is alert, awake and oriented x3. HEART: Regular S1 and S2. No murmur, rub or gallop. LUNGS: Clear to auscultate bilaterally. CENTRAL NERVOUS SYSTEM: Grossly nonfocal. EXTREMITIES: Lower extremities with out edema bilaterally. Discharge Data Studies Completed and Pending Completed Studies During Hospitalization Category Date Time Status [facility] [employer] request for service Stat Exams 11/19/24 13:11 Completed XR chest 1V portable [id number] Stat Exams 11/19/24 10:12 Completed Pending at discharge Category Date Time Status PTT [Partial Thromboplastin Time] Stat Lab 11/19/24 18:30 Ordered Platelet Count Q2D Lab 11/21/24 04:00 Ordered Platelet Count Q2D Lab 11/23/24 04:00 Ordered Radiology Impressions Chest X-Ray 11/19/24 10:12 IMPRESSION: No acute cardiopulmonary abnormality. Laboratory Results WBC 6.94 10^3/uL (3.29-11.43) 11/19/24 10:15 RBC 6.11 10^6/uL (3.85-5.65) H 11/19/24 10:15 Hgb 18.10 g/dL (11.27-16.99) H 11/19/24 10:15 Hct 53.8 % (37-53) H 11/19/24 10:15 MCV 88.1 fl (82-101) 11/19/24 10:15 MCH 29.6 pg (27-33) 11/19/24 10:15 MCHC 33.6 g/dL (30-55) 11/19/24 10:15 RDW 12.4 % (12.1-15.1) 11/19/24 10:15 Plt Count 271 10^3/cmm (157-399) 11/19/24 10:15 MPV 9.3 fL (7.4-10.4) 11/19/24 10:15 Neut % (Auto) 59.3 % 11/19/24 10:15 Lymph % (Auto) 26.8 % 11/19/24 10:15 [place] % (Auto) 9.8 % 11/19/24 10:15 Eos % (Auto) 3.0 % 11/19/24 10:15 Baso % (Auto) 0.7 % 11/19/24 10:15 Neut # (Auto) 4.11 10^3/uL (1.8-7.7) 11/19/24 10:15 Lymph # (Auto) 1.9 10^3/uL (0.8-4.8) 11/19/24 10:15 [place] # (Auto) 0.7 10^3/uL (0.2-0.9) 11/19/24 10:15 Eos # (Auto) 0.2 10^3/uL (0.0-0.8) 11/19/24 10:15 Baso # (Auto) 0.1 10^3/uL (0.0-0.1) 11/19/24 10:15 Nucleated RBC % (auto) 0 % 11/19/24 10:15 Nucleated RBCs # 0.0 /100WBC 11/19/24 10:15 D-Dimer <= 0.27 ug/mLFEU (0-0.59) 11/19/24 10:15 Sodium 136 mmol/L (136-145) 11/19/24 10:15 Potassium 4.6 mmol/L (3.5-5.1) 11/19/24 10:15 Chloride 99 mmol/L (98-107) 11/19/24 10:15 Carbon Dioxide 25 mmol/L (22-29) 11/19/24 10:15 Anion Gap 16.6 (5-19) 11/19/24 10:15 BUN 9 mg/dL (6-20) 11/19/24 10:15 Creatinine 0.8 mg/dL (0.7-1.2) 11/19/24 10:15 GFR Calculation 104.1 mL/min (90-130) 11/19/24 10:15 Glucose 107 mg/dL (65-115) 11/19/24 10:15 Calculated Osmolality 281 mOsm/kg (285-295) L 11/19/24 10:15 Calcium 9.7 mg/dL (8.5-10.5) 11/19/24 10:15 Total Bilirubin 0.8 mg/dL (0.15-1.2) 11/19/24 10:15 AST 47 U/L (0-40) H 11/19/24 10:15 ALT 81 U/L (0-41) H 11/19/24 10:15 Alkaline Phosphatase 159 U/L (40-130) H 11/19/24 10:15 Troponin T Baseline 11 ng/L (0-15) 11/19/24 10:15 Troponin T 120 Minute 7.28 ng/L (0-15) 11/19/24 11:57 Delta Troponin T -3.72 ABS# (0-10) L 11/19/24 11:57 NT-Pro-B Natriuret Pep < 36 pg/mL (0-125) 11/19/24 10:15 Total Protein 7.4 g/dL (6.6-8.7) 11/19/24 10:15 Albumin 4.4 g/dL (3.5-5.2) 11/19/24 10:15 Globulin 3.0 g/dL (1.3-4.6) 11/19/24 10:15 Vitals Last Vital Signs Pulse 80 11/19/24 17:24 Resp 19 H 11/19/24 17:24 BP 140/105 11/19/24 17:24 Pulse Ox 97 11/19/24 13:30 O2 Del Method Room Air 11/19/24 17:24 Discharge Plan Discharge Patient Disposition: Home Condition: Stable Prescriptions: New isosorbide mononitrate 30 mg tablet extended release 24 hr 30 mg PO DAILY Qty: 30 4RF hydrochlorothiazide 25 mg tablet 25 mg PO DAILY Qty: 30 4RF valsartan 80 mg tablet 80 mg PO BID Qty: 60 4RF Continued aspirin [Aspir-81] 81 mg Tablet,Delayed Release (Dr/Ec) 81 mg PO DAILY Discontinued amlodipine 5 mg tablet 5 mg PO DAILY Qty: 90 3RF Tobacco Checkout Clerk OK for DC: Cardiology Discharge Order = DC NOW: Discharge Order (Routine); Ordered 11/19/24 Ordered By: Peña Martin Referrals: Negro Menezes, [Primary Care Provider, [facility]] Discharge Diet: Usual diet Discharge Activity: Resume usual activity Patient Instructions: Opioid Safety, Patient Portal & [place] Instructions Activity Restrictions/Additional Instructions: No lifting of more than a gallon of milk with right hand for next 2 days. Patient can return to work from Thursday without any restriction. Keep a log of blood pressure pulse twice a day and bring it to Dr. Martin's office Follow up with Dr. Martin in 7 days Discharge Attestations Time Spent in Discharge Care*: greater than 30 min Quality Metrics Clinical Quality Measures [ No reported AMI, CVA or VTE this stay] Coding Level of Care Code Acute Code for Chg Fwd Diagnoses Essential hypertension I10 Unstable angina I20.0
== END 2024-11-19 18:22 | disposition home or self-care (01) ==
LOC: ER 13:09 → CCL 13:21 → CSU 15:25
PROVIDERS: Admitting Provider Internal Medicine Cardiovascular Disease; Emergency Provider General Practice; PCP Electrodiagnostic Medicine; Visit Provider Internal Medicine Cardiovascular Disease
DX: I20.0 Unstable angina (principal); I10 Essential (primary) hypertension; Z79.82 Long term (current) use of aspirin; Z82.49 Family history of ischemic heart disease and other diseases of the circulatory system; E78.5 Hyperlipidemia, unspecified; Z87.891 Personal history of nicotine dependence
CPT/HCPCS: 36415; 71045; 80053; 83880; 84484; 85025; 85378; 93005; 93458; 96365; 96366; 99152; 99153; 99285; C1769; C1887; C1894; G0378; J1644; J1938; J2250; J3010; J3490; J7030; J9999; Q9967

== ENCOUNTER 2024-11-28 15:37 | Outpatient (CLI) | payer OTHER, SELFPAY ==
[2024-11-28 16:21] LABS: Anion Gap 14.1 (5-19); Blood Urea Nitrogen 25 mg/dL (6-20); Calcium 9.7 mg/dL (8.5-10.5); Carbon Dioxide 27 mmol/L (22-29); Chloride 100 mmol/L (98-107); Glucose 87 mg/dL (65-115); NT Pro B Type Natriuretic Pept < 36 pg/mL (0-125); Osmolality Calculated 288 mOsm/kg (285-295); Potassium 4.1 mmol/L (3.5-5.1); Sodium 137 mmol/L (136-145)
== END 2024-11-28 15:38 | disposition home or self-care (01) ==
LOC: LAB 15:39
PROVIDERS: PCP Electrodiagnostic Medicine; Visit Provider Internal Medicine Cardiovascular Disease
DX: I10 Essential (primary) hypertension (principal)
CPT/HCPCS: 36415; 80048; 83880